=== PATIENT | male | born 1995 | race African-American/Black ===

== ENCOUNTER 2022-03-29 10:58 | Emergency (ER) | payer MEDICAID, SELFPAY ==
--- NOTE | ~2022-03-29 | US_ITS ---
EXAMINATION: US venous doppler UE RT DATE: 03/29/2022 12:05 INDICATION: Right arm pain TECHNIQUE: Rhodes scale images with and without compression and Doppler images of the right upper extre mity veins were obtained. COMPARISON: No prior studies for comparison. . FINDINGS: The right internal jugular vein, subclavian vein, axillary vein, brachial veins, basilic vein, cephal ic vein, radial vein, and ulnar vein are patent. IMPRESSION: 1. Patent right upper extremity veins. No evidence of deep venous thrombosis. Reviewed, dictated and finalized at location A.
[2022-03-29 11:16] VITALS: BP 144/84; PULSE 58; RESP 16; TEMP 36.2; O2SAT 98
--- NOTE | 2022-03-29 12:08 | ED.UPPEXIN ---
HPI - Extremity Injury (Upper) General Chief Complaint: Extremity Injury, Upper Stated Complaint: R arm pain Time Seen by Provider: 03/29/22 12:02 History of Present Illness HPI narrative: Pt presents with pain in right arm and hand for two to three days. Pt denies injury but has been doing a lot of lifting at work. 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 Pt denies SOB. Pt says the pain is worse with movement and the arm feels swollen. Pt denies fever. Related Data Allergies Allergy/AdvReac Type Severity Reaction Status Date / Time No Known Allergies Allergy Unverified 08/13/19 13:57 Review of Systems Review of Systems: All systems reviewed & are unremarkable except as noted in HPI and below Exam Const: General: healthy appearing Nutritional Appearance: well nourished Orientation/consciousness: patient oriented x3 Limitations: no limitations Eyes: Conjunctivae: conjunctivae normal EOM: EOMs intact bilaterally Neck: Neck: normal visual inspection, no lymphadenopathy and no meningeal signs Chest: Chest palpation & inspection: normal inspection of the chest Resp: Effort & Inspection: normal respiratory effort Auscultation: clear to auscultation bilaterally Cardio: Rate: regular rate Rhythm: regular rhythm GI: GI Palp: Yes Soft to palpation Auscultation: normal bowel sounds Skin: General skin exam: normal color Rashes: no rashes Wounds: no wounds Neuro: General: patient oriented x3 Cranial nerves: Yes Nystagmus not present Speech: normal speech Gait exam (Neuro): Normal gait present Extrem: Other: right arm appears swollen, diffuse tenderness but no specific bony tenderness. radial and ulnar pulses intact. No motor deficits. Psych: Mental Status: mental status grossly normal Affect: normal affect Attitude: cooperative Course Vital Signs Vital signs: Vital Signs Temperature 97.2 F L 03/29/22 11:16 Pulse Rate 58 L 03/29/22 11:16 Respiratory Rate 16 03/29/22 11:16 Blood Pressure 144/84 H 03/29/22 11:16 Pulse Oximetry 98 03/29/22 11:16 Oxygen Delivery Room Air 03/29/22 11:16 Temperature 97.2 F L 03/29/22 11:16 Pulse Rate 58 L 03/29/22 11:16 Respiratory Rate 16 03/29/22 11:16 Blood Pressure 144/84 H 03/29/22 11:16 Pulse Oximetry 98 03/29/22 11:16 Oxygen Delivery Room Air 03/29/22 11:16 Discharge Plan Discharge Clinical Impression: Muscle strain of right shoulder Patient Disposition: Home, Self-Care Condition: Stable Instructions: Antibiotic Form, Muscle Strain (DC) Prescriptions: New naproxen [Naprosyn] 500 mg tablet 500 mg PO BID Qty: 20 0RF cyclobenzaprine 10 mg tablet 10 mg PO TID Qty: 30 0RF Follow-up/Referrals: Ramiro Chance MD [Primary Care Provider] - Stand Alone Forms: Work/School Release IP
[2022-03-29] MEDS: MORPHINE SULFATE (*CRX) 4 MG/ML INJ IM (12:23)
== END 2022-03-29 13:05 | disposition home or self-care (01) ==
PROVIDERS: Emergency Provider Emergency Medicine; PCP Emergency Medicine
DX: S46.911A Strain of unspecified muscle, fascia and tendon at shoulder and upper arm level, right arm, initial encounter (principal); X50.0XXA Overexertion from strenuous movement or load, initial encounter
CPT/HCPCS: 93971; 96372; 99284; A4565; J2270

== ENCOUNTER 2024-06-07 10:45 | Emergency (ER) | payer MEDICAID, OTHER, SELFPAY ==
--- NOTE | ~2024-06-07 | CT_ITS ---
CT lumbar spine wo con Ordering provider: Kyle Franco MD History: 29 years Male with . Midline lumbar pain after lifting . Comparison: None. Technique: CT lumbar spine without contrast. Automated exposure control and iterative reconstruction technique were employed. The dose-length product was 639.61 mGy-cm. FINDINGS: VERTEBRAE: Lumbarization of S1. Pseudoarthrosis seen on the right side. Otherwise Normal height and a lignment. No subluxation or visible acute fracture. Hypodensity with sclerotic margin is seen in the left iliac bone which may be degenerative. Infection is less likely although not excluded. Clinical c orrelation and Follow-up advised. DISC SPACES: Well maintained. T12-L1: No stenosis. L1-L2: No stenosis. L2-L3: No stenosis. L3-L4: No stenosis. L4-L5: No stenosis. Mild diffuse disc bulge. L5-S1: No stenosis. PARASPINOUS SOFT TISSUES: Normal aorta. IMPRESSION: No acute osseous abnormality. Reviewed, dictated and finalized at location A.
[2024-06-07 10:52] VITALS: BP 130/82; PULSE 70; RESP 17; TEMP 36.4; O2SAT 98
--- NOTE | 2024-06-07 13:28 | ED.GENADULT ---
HPI - General Adult General Chief complaint: Back Pain/Injury Stated complaint: lower back pain Time Seen by Provider: 06/07/24 11:34 History of Present Illness HPI narrative: This is a 29-year-old male presenting ED with chief complaint of back pain. [place] and felt a pop in his back. Since then he has had some pain across his back. It is worse in the middle. He has not taken anything for pain control. He denies lower extremity weakness urinary retention bowel incontinence saddle anesthesia. Denies history of IV drug abuse cancer or trauma. Related Data Allergies Allergy/AdvReac Type Severity Reaction Status Date / Time shellfish derived Allergy Unknown Verified 06/07/24 12:07 [facility] Past Medical History Medical History (Updated 06/07/24 @ 13:42 by Kyle Franco MD) Sickle cell anemia Exam Narrative: APPEARANCE: No apparent distress. Head: atraumatic. EYES: EOMI, NOSE: Atraumatic NECK: Trachea midline RESPIRATORY: No increased rate of breathing CARDIOVASCULAR: RRR, ABDOMINAL: Non-distended MUSCULOSKELETAl: No obvious deformities NEURO: Alert. Cranial nerves 2-12 grossly intact. Sensation light touch, motor function cerebellar function intact for 4 extremities. Gait exam was normal. SKIN:: Warm, dry. Normal color PSYCHIATRIC: Normal affect Course Vital Signs Vital signs: Vital Signs Temperature 97.6 F 06/07/24 10:52 Pulse Rate 70 06/07/24 10:52 Respiratory Rate 17 06/07/24 10:52 Blood Pressure 130/82 06/07/24 10:52 Pulse Oximetry 98 06/07/24 10:52 Oxygen Delivery Room Air 06/07/24 10:52 Temperature 97.6 F 06/07/24 10:52 Pulse Rate 70 06/07/24 10:52 Respiratory Rate 17 06/07/24 10:52 Blood Pressure 130/82 06/07/24 10:52 Pulse Oximetry 98 06/07/24 10:52 Oxygen Delivery Room Air 06/07/24 10:52 Medical Decision Making [facility] Narrative Medical decision making narrative: -Course: 29-year-old male presenting with lower back pain after lifting an object. CT L-spine unremarkable. No red flags on history or physical. Patient will be discharged with supportive measures and return precautions. -DDX includes but is not limited to: Lumbar strain, disc rupture, -Co-morbidities complicating care: Sickle cell disease -Independent interpretation of studies: CT lumbar spine unremarkable -Shared decision making / Disposition: Discharged -RX Motrin Tylenol Robaxin Vital Signs Vital Signs: Vital Signs Temperature 97.6 F 06/07/24 10:52 Pulse Rate 70 06/07/24 10:52 Respiratory Rate 17 06/07/24 10:52 Blood Pressure 130/82 06/07/24 10:52 Pulse Oximetry 98 06/07/24 10:52 Oxygen Delivery Room Air 06/07/24 10:52 Temperature 97.6 F 06/07/24 10:52 Pulse Rate 70 06/07/24 10:52 Respiratory Rate 17 06/07/24 10:52 Blood Pressure 130/82 06/07/24 10:52 Pulse Oximetry 98 06/07/24 10:52 Oxygen Delivery Room Air 06/07/24 10:52 Discharge Plan Discharge Clinical Impression: Back strain Patient Disposition: Home, Self-Care Condition: Stable Instructions: Antibiotic Form, Acute Low Back Pain (ED) Additional Instructions: Using emergency department for back pain. Please take Motrin Tylenol Robaxin. Please follow-up your primary care for further management. Return if you develop weakness your legs, difficulty urinating or loss of bowel control. Prescriptions: New ibuprofen 800 mg tablet 800 mg PO TID PRN (Reason: pain) 7 Days Qty: 21 0RF acetaminophen 500 mg tablet 1,000 mg PO TID PRN (Reason: shabbir) 7 Days Qty: 42 0RF methocarbamol 750 mg tablet 1,500 mg PO TID Qty: 35 0RF No Action naproxen [Naprosyn] 500 mg tablet 500 mg PO BID Qty: 20 0RF cyclobenzaprine 10 mg tablet 10 mg PO TID Qty: 30 0RF Follow-up/Referrals: Ramiro Chance MD [Primary Care Provider] -
[2024-06-07 14:00] VITALS: BP 140/78; PULSE 80; RESP 16; O2SAT 98
== END 2024-06-07 14:00 | disposition home or self-care (01) ==
PROVIDERS: Emergency Provider Emergency Medicine; PCP Emergency Medicine
DX: S39.012A Strain of muscle, fascia and tendon of lower back, initial encounter (principal); D57.1 Sickle-cell disease without crisis; X50.0XXA Overexertion from strenuous movement or load, initial encounter
CPT/HCPCS: 72131; 99284

== ENCOUNTER 2024-09-12 12:38 | Outpatient (CLI) | payer OTHER, SELFPAY ==
[2024-09-12 13:46] LABS: SARS-CoV-2 RNA PCR Negative (Negative)
== END 2024-09-12 12:39 | disposition home or self-care (01) ==
LOC: ANHLAB 12:40
PROVIDERS: PCP Emergency Medicine; Visit Provider Emergency Medicine
DX: B34.9 Viral infection, unspecified (principal)
CPT/HCPCS: 87635

== ENCOUNTER 2025-05-01 09:48 | Inpatient (IN) | payer OTHER, SELFPAY ==
--- OUTSIDE RECORDS SUMMARY | 2025-02-12 06:12 | XMS_ITS | Continuity of Care Document ---
Author Organization [facility] Address [address] [facility] [place] [address] Phone Care Team Providers Care Manager Call Name Role Phone Ramiro Chance MD Unavailable Unavailable Allergies, Adverse Reactions, Alerts Substance Reaction Status Criticality No Known Allergies Active No Inform ation Medications Medication Instructions Dosage Effective Dates (start - stop) Status Comments triamcinolone acetonide 0.1 % topical cream apply by topical route 2 times every day a thin layer to the affected area(s) 0.00 - Active Procedures Procedure Date OFFICE/OUTPATIENT VISIT, EST OFFICE/OUTPATIENT VISIT, EST PREV VISIT, NEW, AGE 18-39 Advance Directives Directive Yes / No Effective Date File Name No Information Encounters Encounter Description Practice Location Reason(s) For Visit Diagnoses Date Provider Providers Copied on Encounter OFFICE/OUTPA TIENT VISIT, EST [facility], [address] [place], [place], [id number], [place] tel:[phone] [facility] MCV (chief complaint) eczema1 (chief complaint) weight gain1 (chief complaint) Other abnormality of red blood cellsSickle-cell disease without crisisEczemaAbnorma l weight gain 5 Robson Rubio. [address] [facility] [place], [place], [id number] , [place]. tel:[phone] OFFICE/OUTPA TIENT VISIT, EST [facility], [address] [place], [id number], [place] tel:[phone] [facility] sick (chief complaint) ankle pain1 (chief complaint) back pain1 (chief complaint) sickle1 (chief complaint) Viral infectionPain in left ankleMuscle spasm of backSickle-cell disease without crisis 5 Robson Rubio. [address], [place], [place], [address] , [place]. tel:[phone] PREV VISIT, NEW, AGE 18-39 [facility], [address], [place], [place], [id number], [place] tel:[phone] [facility] back pain1 (chief complaint) Encounter for general adult medical examination without abnormal findings 4 Chance Ramiro. [address], [place], [place], [id number] , [place]. [phone] Family History Family Member Type Diagnosis Age At Onset Father Problem sickle cell disease Brother Problem Alive and well Mother Problem sickle cell carrier Payers Payer name Insurance type Covered alliance party [facility] [id number] Social History Type Description Quantity Date Captured Comments Alcohol Use Details No Caffeine Use Details Unknown Tobacco Use Status Current non-smoker Smoking Status Never smoker Sex Male Vital Signs Date / Time: Height Weight BMI Pulse Rate Blood Pressure Temperature Respiratory Rate Body Surface Area Head Circumference BMI percentile Pulse Ox Inhaled Ox 11:12 AM 72.00 in 238.00 lbs 32.2 8 kg/m eter (2) 61 /min 120/70 mm[Hg] 98.4 F 16 /min Chief Complaint And Reason For Visit From encounter dated '02/12/2025 11:12'. MCV (chief complaint). Description: pt has low MCV on lab. Pt does have sickle cell disease withoutrecurrent crisis. He is not anemia and his iron is ok eczema1 (chief complaint). Description: Pt has spotty eczema with dry and itching skin on hand, neck and scalp area . weight gain1 (chief complaint). Description: Pt gained some weight recently .He has not been physically active Plan Of Treatment Date Type Action Status Referral Ordered: Hematology (related to Sickle-cell disease without crisis) ordered Referral Ordered: Referrals: Hematology. Evaluate and treat ordered Referral Ordered: Physical Therapy (related to Muscle spasm of back) ordered Referral Referred To: Physical Therapy Ordered: Referrals: Physical Therapy. Evaluate and treat ordered Appointment [facility] BOOK[facility] History Of Present Illness Encounter Date Complaint History Of Prese nt Illness MCV pt has low MCV o n lab. Pt does have sickle cell disease without recurrent crisis. He is not anemia and his iron is ok eczema1 Pt has spotty ec zema with dry and itching skin on hand, neck and scalp area . weight gain1 Pt gained some w eight recently .He has not been physically active sick Pt c/o acute ons et fever as high as 100.3, mild cough with green mucous, sinus congestion, sore throat, x 4 days. Pt denies any sob Pt denies any GI issue. Pt wants COVID test. Pt denies any dysphagia or neck pain Pt denies any wheezing. ankle pain1 Pt sprained left ankle 3 days ago while pulling something. Pt denies any yuliya injury Pt notices some pain left ankle Pt notices some ankle swelling as well Pt denies any paresthesia. Pt went to [facility] 2 days ago and he was given ibuprofen and he had negative left ankle x ray and was diagnosed with strain of left ankle back pain1 Pt c/o intermitt ent low back pain Pt denies any sciatica or any loss of bowel or bladder control or saddle area paresthesia. sickle1 Pt has sickle ce ll disease without chest pain or any recurrent crisis. back pain1 Pt needs annual physical. Pt picked up something heavy around 06/06/2024 and he noticed a pop around lumbar area with back pain Pt denies any sciatica Pt denies any neuropathy symptoms Pt went to [facility] and had negative lumbar CT pt states that he continues to have some low back pain. Pt denies any loss of bowel or bladder control. Pt is concerned about low back pain Instructions Date Instruction Additional Infor mation No Information Assessments Type Assessment Date assessment Other abnormality of red blood c ells assessment Sickle-cell disease without sally is assessment Eczema assessment Abnormal weight gain Mental Status Date Cognitive Assessment Orientation - [place] ed to time, place, person, situation.
--- OUTSIDE RECORDS SUMMARY | 2025-02-12 06:12 | XMS_ITS | Continuity of Care Document ---
Author Organization [facility] Address [address] [facility] [place] [address] Phone Care Team Providers Care Minibus Driver Name Role Phone Ramiro Chnace MD Unavailable Unavailable Allergies, Adverse Reactions, Alerts [...] Copied on Encounter OFFICE/OUTPA TIENT VISIT, EST [facility], [address] [place], [place], [id number], [place] tel:[phone] [facility] MCV (chief complaint) eczema1 (chief complaint) weight gain1 (chief complaint) Other abnormality of red blood cellsSickle-cell disease without crisisEczemaAbnorma l weight gain 5 Robson Rubio. [address] [facility] [place], [id number] , [place]. tel:[phone] OFFICE/OUTPA TIENT VISIT, EST [facility], [address] [place], [id number], [place] tel:[phone] [facility] sick (chief complaint) ankle pain1 (chief complaint) back pain1 (chief complaint) sickle1 (chief complaint) Viral infectionPain in left ankleMuscle spasm of backSickle-cell disease without crisis 5 Robson Rubio. [address], [place], [place], [address] , [place]. [phone] PREV VISIT, NEW, AGE 18-39 [facility], [address], [place], [place], [address], [place] tel:[phone] [facility] back pain1 (chief complaint) Encounter for general adult medical examination without abnormal findings 4 Chance Ramiro. [address], [place], [place], [address] , [place]. tel:[phone] Family History Family Member Type Diagnosis Age At Onset Father Problem sickle cell disease Brother Problem Alive and well Mother Problem sickle cell carrier Payers Payer name Insurance type [facility]overed [facility] [id number] Social History Type Description Quantity Date Captured [...] Mental Status Date Cognitive Assessment Orientation - [place] ed to time, place, person, situation.
[2025-05-01] VITALS (47 sets, daily range): BP systolic 113–145; BP diastolic 69–97; PULSE 59–86; RESP 10–23; TEMP 36.4; O2SAT 97–100; BMI 33.8
--- NOTE | ~2025-05-01 | XR_ITS ---
EXAMINATION: XR chest 2V 05/01/2025 11:25 INDICATION: Sickle cell crisis for one week PROCEDURE: 2 view chest COMPARISON: 07/12/2017 FINDINGS: The lungs are clear. The cardiomediastinal silhouette is within normal limits. There are no pleural effusions. There is no pneumothorax suspected. IMPRESSION: 1: NO ACUTE CARDIOPULMONARY DISEASE. Reviewed, dictated and finalized at location O.
--- NOTE | ~2025-05-01 | CT_ITS ---
EXAMINATION: CT pelvis wo con DATE: 05/01/2025 16:31 INDICATION: Bilateral hip and low back pain TECHNIQUE: High resolution computed tomography (CT) of the pelvis was performed without intravenous contrast. Additional sagittal and coronal reconstructions were performed. Automated exposure control and iterative reconstruction technique were employed. The dose-length product was 496.54 mGy-cm. COMPARISON: Lumbar spine CT dated 06/07/2024 FINDINGS: Bone alignment is normal. Transitional L5 segment, sacralized on the right. No fracture. Chronic lytic lesion with serpiginous sclerotic margins at the base of the left posterior iliac spine consistent with a chronic bone infarct. Stable appearance of an additional likely benign small ill-defined sclerotic focus in nearly identical position at the contralateral base of the right posterior leg spine potentially with similar etiology. No other suspicious lytic or blastic bone lesions. Specifically no evident lesions at the femoral heads to suggest osteonecrosis. Bilateral hip joint spaces appear relatively preserved however there are mild hypertrophic change along the rims of the bilateral acetabula consistent with at least minimal osteoarthritis. No hip joint effusions or other abnormal fluid collections. Suture line along the tip the cecum consistent with prior appendectomy. The bladder, prostate, seminal vesicles and visualized portions of bowels are unremarkable. No pathologically enlarged pelvic or inguinal lymphadenopathy. IMPRESSION: 1. Unchanged small indolent appearing lytic lesion with serpiginous cardiac margins at the base of the left posterior neck spine suggestive of a chronic bone infarct particularly given history of sickle cell disease. No acute osseous abnormality. Reviewed, dictated and finalized at location A. IMPRESSION: 1. Unchanged small indolent appearing lytic lesion with serpiginous cardiac mar gins at the base of the left posterior neck spine suggestive of a chronic bone infarct particularly given history of sickle cell disease. No acute osseous abn ormality.
--- OUTSIDE RECORDS SUMMARY | 2025-05-01 10:09 | XMS_ITS | Clinical Summary ---
Author Organization [facility] Address [address] [place] [address] Care Team Providers Care Compliance Vice President Name Role Phone Ramiro Chance MD Primary Care Provider [phone] Allergies No known active allergies Medications No known medications Social History Tobacco Use Types Packs/Day Years Used Date Smoking Tobacco: Never Smokeless Tobacco: Never Tobacco Cessation:Counseling Given: Not Answered Alcohol Use Standard Drinks/Week Comments Never 0 (1 standard drink = 0.6 oz pur e alcohol) Sex and Gender Information Value Date Recorded Sex Assigned at Not on file Legal Sex Male 7:43 PM CDT Gender Identity Not on file Sexual Orientation Not on file Last Filed Vital Signs Vital Sign Reading Time Taken Comments Blood Pressure 138/88 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 Pulse 84 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 Temperature 36.9 C (98.5 F) 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 Respiratory Rate 16 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 Oxygen Saturation 96% 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 Inhaled Oxygen Concentration - - Weight 103.9 kg (229 lb) 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 Height 182.9 cm (6') 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 Body Mass Index 31.06 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 Plan of Treatment Health Maintenance Due Date Last Done Comments Annual Physical 2000 HPV Vaccines (2 - Male 3-dose series) 11/13/2013 10/16/2013 Hepatitis C 2015 DTaP, Tdap and Td Vaccines (2 - Td or Tdap) 09/16/2019 09/16/2009 COVID-19 Vaccine ( season) 2024 Hepatitis B Vaccines Completed 1997, 1997, 1997 Pneumococcal Vaccine: Pediatrics (0 to 5 Years) and At-Risk Patients (6 to 49 Years) Aged Out 11/05/2015, 06/05/2014, 09/01/2001, Additional history exists No longer eligible based on patient's age to complete this topic Meningococcal Vaccine Aged Out 06/25/2016, 010 No longer eligible based on patient's age to complete this topic Meningococcal B Vaccine Aged Out No l onger eligible based on patient's age to complete this topic RSV Immunizations Under 20 Months Aged Out No longer eligible based on patient's age to complete this topic Insurance [employer] Care Teams Compliance Vice President Relationship Specialty Start Date End Date Ramiro Chance MD [address] [place] [id number] PCP - General FAMILY PRACTICE 07/08/24
--- OUTSIDE RECORDS SUMMARY | 2025-05-01 10:09 | XMS_ITS | Clinical Summary ---
Author Organization [facility] Address [address] [place] [address] Phone Care Team Providers Care Keno Manager Name Role Phone Ruben Pantoja APRN, MICROSCOPIST Primary Care Pr ovider Bhanu Rubio MD Unavailable Tramaine Estrada DO Unavailable [phone] Allergies No known active allergies Medications triamcinolone (KENALOG) 0.1 % Cream Apply 2 times daily. 02/12/2025 Active folic acid (FOLVITE) 1 MG Tablet Take 1 Tablet by mouth daily. 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 Telephone [facility] [address] [phone] Hawa Paula, HELENA, MICROSCOPIST 04/09/2025 Travel 02/26/2025 2:15 PM CDT Lab [facility] [address] [phone] Lab, Cc [place] Hemoglobinopathy (HCC) 02/26/2025 2:00 PM CDT Office Visit [facility] [address] [phone] Tramaine Estrada, DO Hemoglobinopathy (HCC) (Primary Dx) 02/26/2025 Travel from Last 3 Months Family History Medical History Relation Name Comments Hypertension Father Sickle Cell Anemia Father Sickle Cell Trait Half-Brother 1 Sickle Cell Trait Half-Brother 2 Sickle Cell Trait Half-Brother 3 Sickle Cell Trait Half-Brother 4 Sickle Cell Trait Half-Sister 1 Sickle Cell Trait Half-Sister 2 Hypertension Mother Sickle Cell Trait Mother Other-comment Sister 1 accident Sickle Cell Trait Sister 2 Sickle Cell Trait Sister 3 Relation Name Status Comments Father Alive Half-Brother 1 Alive Half-Brother 2 Alive Half-Brother 3 Alive Half-Brother 4 Alive Half-Sister 1 Alive Half-Sister 2 Alive Mother Alive Sister 1 Sister 2 Alive Sister 3 Alive Social History Tobacco Use Types Packs/Day Years Used Date Smoking Tobacco: Former Cigarettes Smokeless Tobacco: Never Tobacco Cessation:Counseling Given: Not Answered Alcohol Use Standard Drinks/Week Comments Not Currently 0 (1 standard drink = 0.6 oz pur e alcohol) [facility] Utilities Answer Date Recorded In the past 12 months has [employer], gas, oil, or water [employer] threatened to shut off services in your home? No 09/09/2023 Social Connection and Isolation Panel Answer Date Recorded In a typical week, how many times do you talk on the phone with family, friends, or neighbors? Three times a week 09/09/19 How often do you get togethe r with friends or relatives? Twice a week 09/09/2023 How often do you attend chur or jain services? Never 09/09/2023 Do you belong to any clubs o r organizations such as sikh groups, unions, fraternal or athletic groups, or school groups? No 09/09/2023 How often do you attend meet ings of the clubs or organizations you belong to? Never 09/09/2023 Are you , , di vorced, , never , or living with a partner? Living with partner 09/09/2023 AUDIT-C Answer Date Recorded Q1: How often do you have a drink containing alcohol? Monthly or less 09/09/2023 Q2: How many drinks containi ng alcohol do you have on a typical day when you are drinking? Patient does not drink Q3: How often do you have si x or more drinks on one occasion? Less than monthly 09/09/2023 Overall Financial Resource Strain (CARDIA) Answe r Date Recorded How hard is it for you to pa y for the very basics like food, housing, medical care, and heating? Not very hard 09/09/2023 [facility] - Occupational Stress Questionnaire Answer Date Recorded Do you feel stress - tense, restless, nervous, or anxious, or unable to sleep at night because your mind is troubled all the time - these days? Only a little 09/09/2023 Exercise Vital Sign Answer Date Recorde d On average, how many days pe r week do you engage in moderate to strenuous exercise (like a brisk walk)? 6 days 09/09/2023 On average, how many minutes do you engage in exercise at this level? 20 min 09/09/2023 Hunger Vital Sign Answer Date Recorded Within the past 12 months, y ou worried that your food would run out before you got the money to buy more. Never true 09/09/19 24 Within the past 12 months, t he food you bought just didn't last and you didn't have money to get more. Never true 09/09/2023 PRAPARE - Transportation Answer Date Re corded In the past 12 months, has l ack of transportation kept you from medical appointments or from getting medications? No 01/2024 In the past 12 months, has l ack of transportation kept you from meetings, work, or from getting things needed for daily living? No 09/09/2023 Housing Stability Vital Sign Answer Boy e Recorded In the last 12 months, was t here a time when you were not able to pay the mortgage or rent on time? No 09/09/2023 In the last 12 months, how many places have you lived? 2 09/09/2023 In the last 12 months, was t here a time when you did not have a steady place to sleep or slept in a custodial (including now)? No 09/09/2023 Sexually Active Control Partners Comments Yes None Female Sex and Gender Information Value Date Recorded Sex Assigned at Not on file Legal Sex Male 1:04 PM HOUSEFELLOW Gender Identity Not on file Sexual Orientation Not on file Last Filed Vital Signs Vital Sign Reading Time Taken Comments Blood Pressure 168/90 04/09/2025 1:28 PM CDT Pulse 81 04/09/2025 1:28 PM CDT Temperature 36.7 C (98.1 F) 04/09/2025 1:28 PM CDT Respiratory Rate 18 04/09/2025 1:28 PM CDT Oxygen Saturation 98% 04/09/2025 1:28 PM CDT Inhaled Oxygen Concentration - - Weight 105.7 kg (233 lb) 04/09/2025 1:28 PM CDT Height 181.6 cm (5' 11.5) 04/09/2025 1:28 PM CD T Body Mass Index 32.04 04/09/2025 1:28 PM CDT Plan of Treatment Upcoming Encounters Date Type Department Care Team (Late st Contact Info) Description 07/09/2025 2:00 PM HOUSEFELLOW Lab [facility] [address] [phone] Lab, Cc [facility] 07/09/2025 2:15 PM HOUSEFELLOW Office Visit [facility] [address] [phone] Tramaine Estrada, [address] [place] [phone] Health Maintenance Due Date Last Done Comments Hepatitis C Virus (HCV) Screening 1997 Human Papillomavirus (HPV) Immunization (2 - Male 3-dose series) 11/13/2013 10/16/2013 Pneumococcal Immunization Combined (3 of 3 - PCV20 or PCV21) 06/05/2019 11/05/2015, 06/05/2014, 09/01/2001, Additional history exists SARS-COV-2 Immunization ( season) 2024 Influenza Immunization (#1) 2025 10/09/2015, 06/05/2014, 10/16/2013, Additional history exists Respiratory Syncytial Virus (RSV) Immunization (Adult) (1 - 1-dose 75+ series) 2072 Hepatitis B Immunization Completed 998, 1997, 1997 DTaP/Tdap/Td Immunization Discontinued 09/16/2009 TdaP Immunization Completed 09/16/2009 Meningococcal Immunization (ACWY) Aged Out 06/25/2016, 09/16/2009 No longer eligibl e based on patient's age to complete this topic Rotavirus Immunization Aged Out No lo nger eligible based on patient's age to complete this topic Procedures Procedure Name Priority Date/Time Associated Diagnosis Comments HAPTOGLOBIN OH Routine 02/26/2025 2:17 PM CDT COMPLETE BLOOD COUNT (CBC) WITH DIFF Routine 02/26/2025 2:17 PM CDT Hemoglobinopathy (HCC) CMP (COMPREHENSIVE METABOLIC PANEL) Routine 02/26/2025 2:17 PM CDT Hemoglobinopathy (HCC) RETICULOCYTE COUNT (RETIC) Routine 02/26/2025 2:17 PM CDT Hemoglobinopathy (HCC) LACTATE DEHYDROGENASE (LD) Routine 02/26/2025 2:17 PM CDT Hemoglobinopathy (HCC) HEMOGLOBINOPATHY PROFILE [place] [id number] Routine 02/26/2025 2:17 PM CDT Hemoglobinopathy (HCC) from Last 3 Months Results * (ABNORMAL) HAPTOGLOBIN OH (02/26/2025 2:17 PM CDT) Haptoglobin <10(L) 17 - 317 MG/DL [facility] 02/26/2025 2:17 PM CDT Narrative [facility] - 02/27/2025 9:07 AM CDT TESTING PERFORMED AT: [CB] [facility], [address] [place] [address], [place], [address], PHONE: [phone], CHARRER: MARTHA MATSON, PHD Tramaine Estrada DO LAB SEND OUTS Final Result [facility] [place] [address], * (ABNORMAL) HEMOGLOBINOPATHY PROFILE [place] [id number] (02/26/2025 2:17 PM CDT) HEMOGLOBIN F REFLEXED 0.0 - 2.0 % [facility] HEMOGLOBIN A REFLEXED 96.4 - 98.8 % [facility] HEMOGLOBIN A2 REFLEXED 1.8 - 3.2 % [facility] HEMOGLOBIN S REFLEXED 0.0 % [facility] HEMOGLOBIN PATTERN COMMENT C [facility] Comment: CAPILLARY ELECTROPHORESIS (CE) PERFORMED. REFLEX TO HGB SOLUBILITY AND HIGH-PRESSURE LIQUID CHROMATOGRAPHY (HPLC) METHOD FOR CONFIRMATION. HEMOGLOBIN S HGB SOLUBILITY POSITIVE(A) NEGATIVE [facility] HEMOGLOBIN F 0.7 0.0 - 2.0 % [facility] HEMOGLOBIN A 0.0(L) 96.4 - 98.8 % [facility] HEMOGLOBIN A2 3.5(H) 1.8 - 3.2 % [facility] HEMOGLOBIN S 49.3(H) 0.0 % [facility] HEMOGLOBIN C 46.5(H) 0.0 % [facility] HEMOGLOBIN E 0.0 0.0 % [facility] FINAL INTERPRETATION COMMENT [facility] Comment: HEMOGLOBIN PATTERN AND CONCENTRATIONS ARE CONSISTENT WITH S-C DISEASE. SUGGEST CLINICAL AND HEMATOLOGIC CORRELATION. S-C DISEASE INTERPRETATION RANGES HGB F 0.0 - 20.0% HGB S 40.0 - 60.0% HGB C 35.0 - 50.0% HGB A2 2.8 - 6.0% 02/26/2025 2:17 PM CDT Narrative [facility] - 03/04/2025 1:07 PM CDT TESTING PERFORMED AT: [] [facility], [address] [place] [address], [place], [address], PHONE: [phone], CHARRER: MARTHA MATSON, PHD Release to patient->Immediate us Tramaine Estrada DO LAB SEND OUTS Final Result Performing Organization Address City/[facility]/ZIP Co de Phone Number [facility] [place] [address], [place] [phone] * (ABNORMAL) RETICULOCYTE COUNT (RETIC) (02/26/2025 2:17 PM CDT) Reticulocyte count 3.43(H) 0.51 - 1.81 % [facility] RET-He 26.50(L) 28.20 - 36.60 pg [facility] Comment: RET-He is a direct assessment of incorporation of iron into erythrocyte hemoglobin. It provides an indirect measure of the iron available for new erythropoiesis over past 2-4 days. Blood 02/26/2025 2:17 PM CDT [facility] - 02/26/2025 2:34 PM CDT Release to patient->Immediate us Tramaine Estrada DO HEMATOLOGY ORDERABLES Final Re sult Performing Organization Address City/[facility]/ZIP Co de Phone Number [facility] [place] [address], [place] [phone] * LACTATE DEHYDROGENASE (LD) (02/26/2025 2:17 PM CDT) LDH 158 140 - 271 U/L [facility] Blood 02/26/2025 2:17 PM CDT [facility] - 02/26/2025 3:11 PM CDT Release to patient->Immediate us Tramaine Estrada DO CHEMISTRY ORDERABLES Final Res ult [facility] [place] [address], * (ABNORMAL) CMP (COMPREHENSIVE METABOLIC PANEL) (02/26/2025 2:17 PM CDT) Glucose 97 70 - 105 mg/dL [facility] Blood Urea Nitrogen 11 7 - 25 mg/dL [facility] Creatinine 1.2 0.7 - 1.3 mg/dL [facility] Sodium 139 136 - 145 mEq/L [facility] Potassium 4.5 3.5 - 5.1 mEq/L [facility] Chloride 103 98 - 107 mEq/L [facility] Bicarbonate 29 21 - 31 mEq/L [facility] Total Bilirubin 1.3(H) 0.3 - 1.0 mg/dL [facility] Alk. Phosphatase 101 34 - 104 U/L [facility] Aspartate Aminotransferase 13 13 - 39 U/L [facility] Alanine Aminotransferase 12 7 - 52 U/L [facility] Total Protein 8.0 6.4 - 8.9 g/dL [facility] Albumin 4.9 3.5 - 5.7 g/dL [facility] Calcium 10.1 8.6 - 10.3 mg/dL [facility] Anion Gap 11.5 7.0 - 15.0 mEq/L [facility] Globulin 3.1 2.0 - 3.5 g/dL [facility] EGFR 84 >60 ml/min/1. 73m2 [facility] Comment: This eGFR is calculated using 2020 CKD-EPI Creatinine equation without race modifier based on the NKF-ASN task force recommendations Equation: vOJL=055*min(SCr/k,1)a*max(SCr/k,1)-1.200*0.9938Age*1.012 (if female), where SCr is serum creatinine, k is 0.7 for females and 0.9 for males, and a is -0.241 for females and -0.302 for males Blood 02/26/2025 2:17 PM CDT Narrative [facility] - 02/26/2025 3:11 PM CDT Release to patient->Immediate IS THE PATIENT REQUIRED TO BE FASTING FOR 8 HOURS?->No us Tramaine Estrada DO CHEMISTRY ORDERABLES Final Res ult [facility] [address] [place] [address], [place] [phone] from Last 3 Months Insurance MED[place]ID [place] Advance Directives * Full Code (Latest Code Status on File) Date Activated Date Inactivated Comments 09/09/2023 1:45 AM 09/13/2023 3:24 PM CPR-Full Treat ment: FULL ARREST: Attempt Resuscitation/CPR wit intubation and mechanical ventilation. PRE-ARREST: Use entire range of life support measures to stabilize the patient. Care Teams Keno Manager Relationship Specialty Start Date End Date Ruben Pantoja APRN, MICROSCOPIST #2 [facility] [address] [place] [address] PCP - General Advanced Practice Nurse 09/20/23 Bhanu Rubio MD #2 [facility] [address] [place] [address] Consulting Physician Colon and Rectal Surgery 09/21/23 Tramaine Estrada DO [address] [place] [phone] Consulting Physician Oncology 02/13/25
--- OUTSIDE RECORDS SUMMARY | 2025-05-01 10:09 | XMS_ITS | Clinical Summary ---
Author Organization [facility] Address [address] [place] [address] Care Team Providers Care Retail Merchandising Coordinator Name Role Phone Ramiro Chance MD Primary Care Provider [phone] Allergies No known active allergies Medications acetaminophen- codeine (TYLENOL with CODEINE #4) 300-60 mg per tablet Take 1 tablet by mouth every 4 (four) hours as needed for pain Take as directed with food. Collaborating physician Yovani Goetz MD 12 tablet 12/02/19 Active naproxen (NAPROSYN) 500 mg tablet Take 1 tablet (500 mg total) by mouth 2 (two) times a day with meals P.r.n. pain and/or fever. Collaborating physician Yovani Goetz MD 20 tablet 05/10/20 23 Active promethazine-D M (PROMETHAZINE- DM) 1.25-3 mg/mL syrupIndicatio ns:Acute bronchitis, unspecified organism Take 5 mL by mouth 4 (four) times a day as needed for cough Collaborating physician Yovani Goetz MD 118 mL 05/10/20 23 Active amoxicillin-cl avulanate (AUGMENTIN) 875-125 mg per tabletIndicati ons:Acute maxillary sinusitis, recurrence not specified Take 1 tablet by mouth every 12 (twelve) hours for 10 days Collaborating physician Yovani Goetz MD 20 tablet 04/22/20 25 2024 Active phenylephrine (ARNULFO-SYNEPHRIN E) 0.25 % nasal sprayIndicatio ns:Acute maxillary sinusitis, recurrence not specified Administer 2 sprays into each nostril every 4 (four) hours as needed for congestion Collaborating physician Yovani Goetz MD 15 mL 04/22/20 Active amoxicillin-cl avulanate (AUGMENTIN) 875-125 mg per tabletIndicati ons:Acute left otitis media Take 1 tablet by mouth every 12 (twelve) hours Collaborating physician Yovani Goetz MD 14 tablet 05/10/20 23 2024 Discontinued predniSONE (DELTASONE) 20 mg tabletIndicati ons:Acute maxillary sinusitis, recurrence not specified Take 1 tablet (20 mg) by mouth 2 (two) times a day for 5 days Collaborating physician Yovani Goetz MD 10 tablet 04/22/20 25 2024 Active Problems Problem Noted Date Diagnosed Date Acute maxillary sinusitis 04/22/2025 Acute left otitis media 05/09/2023 Strep pharyngitis 12/01/2022 Encounters Date Type Department Care Team Description 04/22/2025 3:22 PM CDT - 04/22/2025 4:53 PM CDT Emergency [facility] Emergency Department [address] [place] [address] Acute maxillary sinusitis, recurrence not specified (Primary Dx); Acute left otitis media Discharge Disposition: Discharge to home or self care from Last 3 Months Medical History Medical History Date Comments Sickle cell anemia (HCC) Social History Tobacco Use Types Packs/Day Years Used Date Smoking Tobacco: Never Tobacco Cessation:Counseling Given: Not Answered Alcohol Use Standard Drinks/Week Comments Never 0 (1 standard drink = 0.6 oz pur e alcohol) Personal Safety Answer Date Recorded Have you ever been in or are you currently in a harmful physical or emotional relationship or is someone making you feel afraid or unsafe? 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 Gender Identity Not on file Sexual Orientation Not on file Obstetrics History Last Filed Vital Signs Vital Sign Reading Time Taken Comments Blood Pressure 136/78 04/22/2025 4:51 PM CDT Pulse 75 04/22/2025 4:51 PM CDT Temperature 36.9 C (98.4 F) 04/22/2025 2:50 PM CDT Respiratory Rate 16 04/22/2025 4:51 PM CDT Oxygen Saturation 97% 04/22/2025 4:51 PM CDT Inhaled Oxygen Concentration - - Weight 105.7 kg (233 lb) 04/22/2025 2:50 PM CDT Height 180.3 cm (5' 11) 04/22/2025 2:50 PM CDT Body Mass Index 32.5 04/22/2025 2:50 PM CDT Plan of Treatment Health Maintenance Due Date Last Done Comments Depression Screening 1997 Hepatitis C Screening 1997 Meningococcal B Vaccine (1 o f 4 - Increased Risk) 2007 HPV Vaccines (2 - Male 3-dos e series) 11/13/2013 10/16/2013 Regular Well Visit/Exam 18-64 2015 DTaP/Tdap/Td Vaccine (2 - Td or Tdap) 09/16/2019 09/16/2009 Pneumococcal vaccine <65 (3 of 3 - PCV20 or PCV21) 11/04/2020 11/05/2015, 06/05/2014, 09/01/2001, Additional history exists Influenza Vaccine (#1) 2025 6, 06/05/2014, 10/16/2013, Additional history exists Hepatitis B Screening Completed 1997 , 1997, 1997 Varicella Vaccines Completed 04/07/2011, 03/12/1998 Procedures Procedure Name Priority Date/Time Associated Diagnosis Comments INFLUENZA A/B, RSV, AND COVID-19 PCR STAT 04/22/2025 3:15 PM CDT from Last 3 Months Results * Influenza A/B, RSV, and COVID-19 PCR Nasopharyngeal (04/22/2025 3:15 PM CDT) COVID-19 RNA Negative Negative Influenza A RNA Negative Negative [facility] ([place]) Influenza B RNA Negative Negative [facility] ([place]) RSV RNA Negative Negative [facility] ([place]) Comment: Interpretive data: Testing performed by [facility]. This test is performed using the [employer] Xpert Xpress CoV-2/Flu/RSV plus assay. This is a multiplex, real- time reverse transcriptase PCR assay intended for the qualitative detection of nucleic acid from SARS-CoV-2, influenza A, influenza B, and respiratory syncytial virus. This assay has been cleared by the [place] Food and Drug administration. The performance characteristics have been verified by the [facility]. Results must be considered in the clinical context, and a negative result does not rule out infection. Interpretive Data last revised 2023 Nasopharyngeal 04/22/2025 3: 15 PM CDT 04/22/2025 3:18 PM CDT Narrative [facility] ([place]) - 04/22/2025 3:56 PM CDT Is the Patient experiencing symptoms consistent with COVID?->Yes us Jarred Reyes MD LAB MICROBIOLOGY - GENERAL ORD ERABLES Final Result [facility] ([place]) 1 [facility] [place] [address] from Last 3 Months Insurance [facility] Care Teams Retail Merchandising Coordinator Relationship Specialty Start Date End Date Ramiro Chance MD [address] [place] [address] PCP - General Family Medicine 04/22/25
[2025-05-01 10:20] LABS: Hematocrit 35.9 % (42.0-52.0); Hemoglobin 12.3 g/dL (14.0-18.0); Immature Granulocyte Percent A 1.5 % (0-0.5); Immature Reticulocyte Fraction 46.2 % (3.0-15.9); Lymphocytes Absolute Auto 6.52 K/mm3 (0.9-3.2); Mean Corpuscular HGB Conc 34.3 g/dl (32-36); Mean Corpuscular Hemoglobin 24.0 pg (26-34); Mean Corpuscular Volume 70.0 fl (80-100); Nucleated Red Blood Cells Absolute Auto 0.120 K/mm3 (0.0-0.012); Nucleated Red Blood Cells Perc 0.6 % (0.0-0.2); Platelet Count Result 284 k/mm3 (150-375); Red Blood Count 5.13 M/mm3 (4.6-6.20); Reticulocyte Hemoglobin Conten 28.5 pg (28.2-36.6); Reticulocytes Absolute 0.27 10^6/uL (0.02-0.10); White Blood Count 20.1 K/mm3 (4.5-10.0)
[2025-05-01 10:39] LABS: Alanine Aminotransferase 22 U/L (6-50); Albumin Level 4.4 g/dL (3.5-5.1); Alkaline Phosphatase 95 U/L (38-126); Anion Gap 9 mmol/L (4-12); Aspartate Amino Transferase 32 U/L (17-59); Bilirubin,Total 1.3 mg/dL (0.2-1.3); Blood Urea Nitrogen 15 mg/dL (9-20); Calcium 9.3 mg/dL (8.4-10.2); Carbon Dioxide 25 mmol/L (22-30); Chloride 104 mmol/L (98-107); Estimated CRCL calculation 116 ml/min; Estimated Glomerular Filt Rate > 60; Glucose 93 mg/dL (65-110); Potassium 3.9 mmol/L (3.4-5.0); Sodium 138 mmol/L (137-145); Total Protein 7.8 g/dL (6.3-8.2)
[2025-05-01 10:46] LABS: Anisocytosis 1+; Polychromasia 1+; Target Cells 2+
[2025-05-01 10:47] LABS: Basophilic Stippling 1+; Schistocytes None Seen
--- OUTSIDE RECORDS SUMMARY | 2025-05-01 10:51 | XMS_ITS | Clinical Summary ---
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 This test is performed using the [employer] Xpert Xpress CoV-2/Flu/RSV plus assay. This is a multiplex, real- time reverse transcriptase PCR assay intended for the qualitative detection of nucleic acid from SARS-CoV-2, influenza A, influenza B, and respiratory syncytial virus. This assay has been cleared by the [place] Food and Drug administration. The performance characteristics have been verified by the [facility]. Results must be considered [...] GENERAL ORD ERABLES Final Result [facility] ([place]) 1 [facility] [place] [address] from Last 3 Months Insurance [facility] Care Teams Enamel Cracker Relationship Specialty Start Date End Date Ramiro Chance MD [address] [place] [address] PCP - General Family Medicine 04/22/25
--- NOTE | 2025-05-01 11:04 | ED.GENADULT ---
HPI - General Adult General Chief complaint: Recheck/Abnormal Lab/Rx Stated complaint: sickle cell Time Seen by Provider: 05/01/25 10:02 Source: patient Mode of arrival: ambulatory Limitations: no limitations History of Present Illness HPI narrative: A 30-year-old male that presents to the emergency department for sickle cell crisis. Reports he has been having pain ongoing over the last week. Has been evaluated for this at another hospital as well. Reports hip pain, low back pain, lower extremity pain, rib pain. He tried taking his home tramadol with little relief. 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 Denies fever, cough, abdominal pain, vomiting, diarrhea, dysuria. Related Data Allergies Allergy/AdvReac Type Severity Reaction Status Date / Time shellfish derived Allergy Unknown Verified 05/01/25 09:59 Review of Systems Review of Systems: All systems reviewed & are unremarkable except as noted in HPI and below PMFSH Past Medical History Medical History (Updated 05/01/25 @ 17:57 by Italia Alicea PA-C) Sickle cell anemia Exam Narrative: GENERAL: Uncomfortable, well-nourished, and in no acute distress. HEAD: Normocephalic, atraumatic. EYES: PERRLA and EOMI. ENT: Nares clear, no rhinorrhea or epistaxis. Mucous membranes moist. Oropharynx without tonsillar hypertrophy exudate or other lesions. Bilateral TMs pearly varghese non-bulging NECK: Supple. No adenopathy or masses. CHEST: Clear to auscultation. No respiratory distress. No wheezes rales or rhonchi HEART: Regular rate and rhythm. No murmur heard. Normal peripheral pulses. ABDOMEN: Soft, nontender, nondistended, normal active bowel sounds. EXTREMITIES: Normal range of motion. No edema. SKIN: Warm, dry, no rash. NEURO: No focal deficits. Alert and oriented x3. PSYCH: Normal mood and affect Course Course Emergency Course: Patient is endorsing continued pain after IV fluids, morphine, toradol, dilaudid, will consult hospitalist for admission Consultations Consultation #1: Spoke with hospitalist about patient and workup who accepts admission Date: 05/01/25 Consultation #2: Dr. Vanegas will consult Date: 05/01/25 Vital Signs Vital signs: Vital Signs Temperature 97.6 F 05/01/25 09:57 Pulse Rate 78 05/01/25 09:57 Respiratory Rate 16 05/01/25 09:57 Blood Pressure 145/85 H 05/01/25 09:57 Pulse Oximetry 100 05/01/25 09:57 Temperature 97.6 F 05/01/25 09:57 Pulse Rate 70 05/01/25 16:45 Respiratory Rate 15 05/01/25 16:45 Blood Pressure 133/77 05/01/25 14:31 Pulse Oximetry 100 05/01/25 16:45 Medical Decision Making MDM Narrative Medical decision making narrative: Patient presents to the ER for pain in the low back, lower extremities, bilateral ribs. Reporting history of sickle cell anemia. His vitals are stable. CBC with leukocytosis to 20.1. Patient is afebrile. He does not have any localizing infectious symptoms. Hemoglobin is 12.3. Absolute reticulocyte 0.27,% reticulocyte 5.3. Metabolic panel without concerning findings. UA without evidence of infection. Chest x-ray without acute cardiopulmonary abnormality. 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 Patient is endorsing continued pain after IV fluids, morphine, toradol, dilaudid, hospitalist was consulted for admission. Dr. Vanegas will consult Vital Signs Vital Signs: Vital Signs Temperature 97.6 F 05/01/25 09:57 Pulse Rate 78 05/01/25 09:57 Respiratory Rate 16 05/01/25 09:57 Blood Pressure 145/85 H 05/01/25 09:57 Pulse Oximetry 100 05/01/25 09:57 Temperature 97.6 F 05/01/25 09:57 Pulse Rate 70 05/01/25 16:45 Respiratory Rate 15 05/01/25 16:45 Blood Pressure 133/77 05/01/25 14:31 Pulse Oximetry 100 05/01/25 16:45 Lab Data Lab results reviewed: Yes I reviewed the patient's lab results. 05/01/25 10:05 05/01/25 10:05 Labs: Lab Results 05/01/25 05/01/25 05/01/25 Range/Units 10:05 12:24 16:46 WBC 20.1 H (4.5-10.0) K/mm3 RBC 5.13 (4.6-6.20) M/mm3 Hgb 12.3 L (14.0-18.0) g/dL Hct 35.9 L (42.0-52.0) % MCV 70.0 L (80-100) fl MCH 24.0 L (26-34) pg MCHC 34.3 (32-36) g/dl RDW 21.0 H (11.5-14.5) % Plt Count 284 (150-375) k/mm3 MPV 8.2 (7.4-10.4) fl Immature Gran % (Auto) 1.5 H (0-0.5) % Neut % (Auto) 58.2 (45.5-73.1) % Lymph % (Auto) 32.5 (18.3-44.2) % [place] % (Auto) 7.0 (2.6-8.5) % Eos % (Auto) 0.5 (0-4.4) % Baso % (Auto) 0.3 (0.2-1.2) % Lymph # (Auto) 6.52 H (0.9-3.2) K/mm3 [place] # (Auto) 1.4 H (0.1-0.6) K/mm3 Eos # (Auto) 0.1 (0-0.3) K/mm3 Baso # (Auto) 0.1 (0.0-0.1) K/mm3 Abs Immat Gran (auto) 0.31 H (0.00-0.031) K/mm3 Absolute Neuts (auto) 11.7 H (1.3-6.7) K/mm3 Absolute Nucleated RBC 0.120 H (0.0-0.012) K/mm3 Band Neutrophils % Not Reportable Nucleated RBC % 0.6 H (0.0-0.2) % Platelet Estimate Adequate (Adequate) Polychromasia 1+ Basophilic Stippling 1+ Anisocytosis 1+ Target Cells 2+ Schistocytes None seen Absolute Retic 0.27 H (0.02-0.10) 10^6/uL Percent Retic 5.30 H (0.7-4.3) % Immature Retic Fraction 46.2 H (3.0-15.9) % Retic Hgb Content 28.5 (28.2-36.6) pg Haptoglobin Pending Sodium 138 (137-145) mmol/L Potassium 3.9 (3.4-5.0) mmol/L Chloride 104 (98-107) mmol/L Carbon Dioxide 25 (22-30) mmol/L Anion Gap 9 (4-12) mmol/L BUN 15 (9-20) mg/dL Creatinine 1.05 (0.7-1.3) mg/dL Estim Creat Clear Calc 116 ml/min Estimated GFR > 60 (59 - ) Glucose 93 (65-110) mg/dL Calcium 9.3 (8.4-10.2) mg/dL Total Bilirubin 1.3 (0.2-1.3) mg/dL AST 32 (17-59) U/L ALT 22 (6-50) U/L Alkaline Phosphatase 95 (38-126) U/L Lactate Dehydrogenase 231 (120-246) U/L Total Protein 7.8 (6.3-8.2) g/dL Albumin 4.4 (3.5-5.1) g/dL Urine Color Yellow (Yellow) Urine Appearance Cloudy H (Clear) Urine pH 6.0 (5.0-9.0) Ur Specific [place] 1.013 (1.001-1.035) Urine Protein Negative (Negative) mg/dL Urine Glucose (UA) Negative (Negative) mg/dL Urine Ketones Negative (Negative) mg/dL Ur Blood (Man) Negative (Negative) Urine Nitrate Negative (Negative) Urine Bilirubin Negative (Negative) Urine Urobilinogen 1.0 (<2.0) mg/dL Leukocyte Esterase Rfl Negative (Negative) RODNEY/UL Urine RBC 0-2 (0-2) /hpf Urine WBC 0-5 (0-3) /hpf Ur Squamous Epith Cells None seen (Few) /hpf Urine Bacteria None seen /hpf Urine Casts 0-2 Imaging Data Radiologist's impression: ITS Impressions Chest X-Ray 05/01/25 11:28 IMPRESSION: 1: NO ACUTE CARDIOPULMONARY DISEASE. Pelvis CT 05/01/25 16:35 IMPRESSION: 1. Unchanged small indolent appearing lytic lesion with serpiginous cardiac margins at the base of the left posterior neck spine suggestive of a chronic bone infarct particularly given history of sickle cell disease. No acute osseous abnormality. Critical Care Time Critical Care Time Critical Care Time: No Discharge Plan Discharge Clinical Impression: Sickle cell anemia Qualifiers: Sickle-cell associated disorders: with unspecified crisis Qualified Code(s): D57.00 - Hb-SS disease with crisis, unspecified Patient Disposition: Still a Patient Condition: Stable Patient Language: Kosovan Prescriptions: No Action naproxen [Naprosyn] 500 mg tablet 500 mg PO BID Qty: 20 0RF cyclobenzaprine 10 mg tablet 10 mg PO TID Qty: 30 0RF ibuprofen 800 mg tablet 800 mg PO TID PRN (Reason: pain) 7 Days Qty: 21 0RF acetaminophen 500 mg tablet 1,000 mg PO TID PRN (Reason: shabbir) 7 Days Qty: 42 0RF methocarbamol 750 mg tablet 1,500 mg PO TID Qty: 35 0RF Follow-up/Referrals: Ramiro Chance MD [Primary Care Provider, Family Practice]
[2025-05-01] MEDS: ONDANSETRON INJ 4 MG/2 ML VIAL IV PUSH (11:10)
[2025-05-01] MEDS: SODIUM CHLORIDE 0.9% IV 1,000 ML 999 ML IV CONT ×2 (11:10→14:35)
[2025-05-01] MEDS: MORPHINE SULFATE (*CRX) 4 MG/ML INJ IV PUSH (11:10)
[2025-05-01] MEDS: KETOROLAC 15 MG/ML VIAL (*BKC) IV PUSH (11:11)
[2025-05-01 12:36] LABS: Add Urine Microscopic? YES; Appearance Urine Cloudy (Clear); Glucose Urine UA Negative (Negative); Leukocyte Esterase Ur Negative LEU/UL (Negative); Nitrate Urine Negative (Negative); Non Pathogenic Casts 0-2; Specific Grav Ur 1.013 (1.001-1.035)
[2025-05-01] MEDS: HYDROmorphone HCL INJ (*CRX) 1 MG/ML SYR 0.5 MG IV PUSH (14:35)
--- NOTE | 2025-05-01 17:17 | P.HP_ITS ---
H&P: HPI History of Present Illness Date/Time: 05/01/25 17:17 Chief Complaint: Sickle cell crisis Narrative: 30-year-old male with past medical history of sickle cell anemia, presents the hospital with acute pain. Patient's is eights that he was at the hospital earlier this week for sickle cell crisis and was discharged home on tramadol. He states that the tramadol was unable to control his pain. He complains of low back and hip pain. He denies shortness of breath fever chills. 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 He was trying to do his respiratory exercises at home to prevent it but it did not help. Patient denies nausea or vomiting. Fever chills. Lab work shows leukocytosis at 20.1, hemoglobin of 12.3, platelets of 284, haptoglobin is pending, CMP is within normal limits. UA is negative for infection. Chest x-ray shows no acute cardiopulmonary process. Pelvis CT shows Unchanged small indolent appearing lytic lesion with serpiginous cardiac margins at the base of the left posterior neck spine suggestive of a chronic bone infarct particularly given history of sickle cell disease. Review of Systems Review of Systems: 12 systems were reviewed and are negativ e except for as per HPI. [facility] Past Medical History Medical History (Updated 05/01/25 @ 20:14 by Jacqueline Rush, YARN CONDITIONER) Sickle cell anemia Social History Social History (System 08/13/19 @ 13:57 by Hawa Buchanan) Smoking status: Former smoker Alcohol intake: former Substance use: never Lack of Transportation: YES Lack of Food: Sometimes True Current Housing: I Have Housing Concerned About Future Housing: YES Difficulty Paying Gas/Electric Bills: YES Difficulty Paying for Meds: YES Currently Unemployed: No Education: Associate Degree Difficulty w/ Childcare or Family Care: No Spiritual care concerns: No Meds Home Medications and Allergies Home Medications ?Medication ?Instructions ?Recorded ?Confirmed ?Type acetaminophen 500 mg tablet 1,000 mg (2 x 500 mg) PO T ID PRN 06/07/24 05/01/25 Rx shabbir 7 days #42 tabs ibuprofen 800 mg tablet 800 mg PO TID PRN pain 7 day s #21 06/07/24 05/01/25 Rx tabs Allergies Allergy/AdvReac Type Severity Reaction Status Date / Time shellfish derived Allergy Unknown Verified 05/01/25 09:59 Vital Signs Vital Signs - 24 hr 05/01/25 09:57 05/01/25 09:57 05/01/25 09:58 Temperature 97.6 F Pulse Rate 78 78 83 Respiratory Rate 16 17 14 Blood Pressure 145/85 H 145/85 H Pulse Oximetry 100 99 100 05/01/25 10:00 05/01/25 10:02 05/01/25 10:15 Temperature Pulse Rate 83 74 71 Respiratory Rate 17 16 12 Blood Pressure 117/84 Pulse Oximetry 100 100 99 05/01/25 10:16 05/01/25 10:30 05/01/25 10:31 Temperature Pulse Rate 79 72 72 Respiratory Rate 10 L 14 19 Blood Pressure 115/79 120/81 Pulse Oximetry 100 100 100 05/01/25 10:45 05/01/25 10:47 05/01/25 11:00 Temperature Pulse Rate 84 70 72 Respiratory Rate 19 14 15 Blood Pressure 128/70 Pulse Oximetry 98 100 100 05/01/25 11:01 05/01/25 11:21 05/01/25 11:30 Temperature Pulse Rate 77 71 68 Respiratory Rate 17 20 12 Blood Pressure 132/93 H Pulse Oximetry 100 99 05/01/25 11:45 05/01/25 12:00 05/01/25 12:15 Temperature Pulse Rate 64 66 59 L Respiratory Rate 14 14 12 Blood Pressure Pulse Oximetry 100 99 100 05/01/25 12:25 05/01/25 12:30 05/01/25 12:31 Temperature Pulse Rate 62 65 62 Respiratory Rate 14 14 12 Blood Pressure 128/74 117/70 Pulse Oximetry 05/01/25 12:45 05/01/25 12:46 05/01/25 13:00 Temperature Pulse Rate 64 62 68 Respiratory Rate 12 11 L 12 Blood Pressure 117/77 Pulse Oximetry 05/01/25 13:01 05/01/25 13:15 05/01/25 13:17 Temperature Pulse Rate 72 79 70 Respiratory Rate 12 14 13 Blood Pressure 113/71 115/69 Pulse Oximetry 100 100 05/01/25 13:30 05/01/25 13:31 05/01/25 13:32 Temperature Pulse Rate 68 68 65 Respiratory Rate 19 18 14 Blood Pressure 115/72 Pulse Oximetry 100 100 100 05/01/25 13:45 05/01/25 13:47 05/01/25 14:00 Temperature Pulse Rate 76 85 67 Respiratory Rate 13 18 12 Blood Pressure Pulse Oximetry 99 100 97 05/01/25 14:01 05/01/25 14:15 05/01/25 14:16 Temperature Pulse Rate 86 62 68 Respiratory Rate 12 12 12 Blood Pressure 139/82 134/85 Pulse Oximetry 100 100 100 05/01/25 14:30 05/01/25 14:31 05/01/25 15:34 Temperature Pulse Rate 71 77 78 Respiratory Rate 14 14 23 H Blood Pressure 133/77 Pulse Oximetry 100 100 98 05/01/25 16:07 05/01/25 16:15 05/01/25 16:31 Temperature Pulse Rate 64 78 80 Respiratory Rate 14 16 Blood Pressure Pulse Oximetry 99 99 100 05/01/25 16:45 Temperature Pulse Rate 70 Respiratory Rate 15 Blood Pressure Pulse Oximetry 100 Exam Narrative: General: well appearing, appears stated age. Tearful HEENT: normocephalic, atraumatic. Mucous membranes moist. EOMI, PERRLA, bilateral sclera anicteric, no conjunctival injection. Neck supple without JVD, lymphadenopathy, or bruit. Respiratory: clear to ascultation bilaterally. No rales/rhonic/wheezes. Cardiovascular: Regular rate and rhythm, normal S1-S2 upon ascultation. No murmurs, rubs, or clicks. PMI is nondisplaced, capillary refill less than 3 second. Abdomen: Soft, round, no pulsatile masses, nondistended and nontender. No rebound, no guarding. No CVA tenderness, no hepatosplenomegaly. Bowel sounds present to all four quadrants. No high pitch or tinkling sounds, resonant to percussion. Extremities: No cyanosis, clubbing, or edema present. Pulses are palpable 2/2. Active ROM to all four extremities. Neuro: Alert and orientated x 4. PERRLA. Cranial nerves 2-12 intact without focal deficit. Skin: Warm, dry, and intact, without rash, erythema, or lesion. Psych: pleasant, cooperative, normal speech, normal affect, no hallucinations, no dysarthia H&P: Results Labs Labs: Short CBC 05/01/25 Range/Units 10:05 WBC 20.1 H (4.5-10.0) K/mm3 Hgb 12.3 L (14.0-18.0) g/dL Hct 35.9 L (42.0-52.0) % Plt Count 284 (150-375) k/mm3 BMP 05/01/25 10:05 Sodium 138 Potassium 3.9 Chloride 104 Carbon Dioxide 25 BUN 15 Creatinine 1.05 Glucose 93 Calcium 9.3 Liver Function 05/01/25 Range/Units 10:05 Total Bilirubin 1.3 (0.2-1.3) mg/dL AST 32 (17-59) U/L ALT 22 (6-50) U/L Alkaline Phosphatase 95 (38-126) U/L Albumin 4.4 (3.5-5.1) g/dL Urine 05/01/25 Range/Units 12:24 Urine Color Yellow (Yellow) Urine Appearance Cloudy H (Clear) Urine pH 6.0 (5.0-9.0) Ur Specific [place] 1.013 (1.001-1.035) Urine Protein Negative (Negative) mg/dL Urine Glucose (UA) Negative (Negative) mg/dL Assessment and Plan Assessment and plan (1) Sickle cell crisis: Code(s): D57.00 - Hb-SS disease with crisis, unspecified Status: Acute Assessment and Plan: Hematology consulted HONING MACHINE TRY OUT SETTER for pain management Scheduled Toradol Incentive spirometer Telemetry with capnography Haptoglobin pending (2) Sickle cell anemia: Qualifiers: Sickle-cell associated disorders: with unspecified crisis Qualified Code(s): D57.00 - Hb-SS disease with crisis, unspecified Code(s): D57.1 - Sickle-cell disease without crisis Status: Acute Assessment and Plan: No need for blood transfusion at this time BMP in the morning (3) Leukocytosis: Code(s): D72.829 - Elevated white blood cell count, unspecified Status: Acute Assessment and Plan: Chest x-ray shows no acute signs of infection UA negative for infection No soft tissue infection No antibiotics indicated at this time Quality VTE Prophylaxis VTE prophylaxis: mechanical ordered Hospitalist MIPS Advance Care Plan I have confirmed that the patient's Advanced Care Plan is present, code status is documented, or surrogate decision maker is listed in patient medical record.: Yes Medication Reconciliation I have utilized all available resources to obtain, update and review the patients current medications (includes all prescriptions, OTC, herbals, cannabis, and nutritional supplements).: Yes
--- NOTE | 2025-05-01 20:22 | ADMGEN ---
This patient, Scott Bowden Jr., was admitted to Medical Room 342-01. Patient/family oriented to hospital policies and general routines including ID bracelet, bed and alarms, visiting hours, pain management, procedures, bathroom and other care routines, personal items, smoking policy, room service/diet, and visiting hours. Information on how to activate the Rapid Response Team has been discussed. Patient/Family are encouraged to report perceived risks to care and to ask questions if they do not understand what they are told or what they should do.
[2025-05-01] MEDS: HYDROmorphon 0.2MG/ML PCA(*CRX 6 MG/30 ML PCA.VIAL IV CONT (21:35)
[2025-05-01] MEDS: SODIUM CHLORIDE 0.9% IV 1,000 ML 125 ML IV CONT (21:35)
[2025-05-02] VITALS (18 sets, daily range): BP systolic 122–126; BP diastolic 67–73; PULSE 63–94; RESP 12–20; TEMP 36.2–37.2; O2SAT 94–99
[2025-05-02] MEDS: SODIUM CHLORIDE 0.9% IV 1,000 ML 125 ML IV CONT ×3 (05:36→20:22)
[2025-05-02 05:56] LABS: Hematocrit 34.9 % (42.0-52.0); Hemoglobin 11.9 g/dL (14.0-18.0); Immature Granulocyte Percent A 0.8 % (0-0.5); Lymphocytes Absolute Auto 4.79 K/mm3 (0.9-3.2); Mean Corpuscular HGB Conc 34.1 g/dl (32-36); Mean Corpuscular Hemoglobin 24.1 pg (26-34); Mean Corpuscular Volume 70.6 fl (80-100); Nucleated Red Blood Cells Absolute Auto 0.110 K/mm3 (0.0-0.012); Nucleated Red Blood Cells Perc 0.8 % (0.0-0.2); Platelet Count Result 266 k/mm3 (150-375); Red Blood Count 4.94 M/mm3 (4.6-6.20); White Blood Count 13.5 K/mm3 (4.5-10.0)
[2025-05-02 06:18] LABS: Anion Gap 4 mmol/L (4-12); Blood Urea Nitrogen 15 mg/dL (9-20); Calcium 8.7 mg/dL (8.4-10.2); Carbon Dioxide 30 mmol/L (22-30); Chloride 104 mmol/L (98-107); Estimated CRCL calculation 107 ml/min; Estimated Glomerular Filt Rate > 60; Glucose 90 mg/dL (65-110); Potassium 4.1 mmol/L (3.4-5.0); Sodium 138 mmol/L (137-145)
[2025-05-02 06:21] LABS: Anisocytosis 1+; Hypochromasia 2+; Polychromasia 1+; Target Cells 2+
[2025-05-02 06:22] LABS: Schistocytes None Seen
[2025-05-02] MEDS: KETOROLAC 15 MG/ML VIAL (*BKC) IV PUSH ×3 (06:27→17:15)
--- NOTE | 2025-05-02 10:26 | P.PNIM_ITS ---
Progress Note: A&P Assessment and Plan (1) Sickle cell crisis: Code(s): D57.00 - Hb-SS disease with crisis, unspecified Status: Acute Assessment and Plan: Hematology consulted [address] STENOGRAPHER for pain management Scheduled Toradol Incentive spirometer Telemetry with capnography Haptoglobin pending (2) Sickle cell anemia: Qualifiers: Sickle-cell associated disorders: with unspecified crisis Qualified Code(s): D57.00 - Hb-SS disease with crisis, unspecified Code(s): D57.1 - Sickle-cell disease without crisis Status: Acute Assessment and Plan: No need for blood transfusion at this time BMP in the morning trend labs has onc/hem he is following up if needed but PCP managing it - no crisis for about 5 years- so well controlled (3) Leukocytosis: Code(s): D72.829 - Elevated white blood cell count, unspecified Status: Acute Assessment and Plan: Chest x-ray shows no acute signs of infection UA negative for infection No soft tissue infection No antibiotics indicated at this time trend daily labs Time Spent With Patient Time with patient: 25 - 35 minutes Subjective Date/time seen: 05/02/25 10:26 Interval history: 30-year-old male with past medical history of sickle cell anemia, presents the hospital with acute pain. Patient's is eights that he was at the hospital earlier this week for sickle cell crisis and was discharged home on tramadol. He states that the tramadol was unable to control his pain. He complains of low back and hip pain. He denies shortness of breath fever chills. 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 He was trying to do his respiratory exercises at home to prevent it but it did not help. Patient denies nausea or vomiting. Fever chills. Lab work shows leukocytosis at 20.1, hemoglobin of 12.3, platelets of 284, haptoglobin is pending, CMP is within normal limits. UA is negative for infection. Chest x-ray shows no acute cardiopulmonary process. Pelvis CT shows Unchanged small indolent appearing lytic lesion with serpiginous cardiac margins at the base of the left posterior neck spine suggestive of a chronic bone infarct particularly given history of sickle cell disease. Pt is seen and examined. He is resting in bed, reports pain is controlled with FREEL[facility] STENOGRAPHER. Review of Systems Review of Systems: 12 systems were reviewed and are negativ e except for as per HPI. Exam Narrative: General: well appearing, appears stated age. calm HEENT: normocephalic, atraumatic. Mucous membranes moist. EOMI, PERRLA, bilateral sclera anicteric, no conjunctival injection. Neck supple without JVD, lymphadenopathy, or bruit. Respiratory: clear to ascultation bilaterally. No rales/rhonic/wheezes. Cardiovascular: Regular rate and rhythm, normal S1-S2 upon ascultation. No murmurs, rubs, or clicks. PMI is nondisplaced, capillary refill less than 3 second. Abdomen: Soft, round, no pulsatile masses, nondistended and nontender. No rebound, no guarding. No CVA tenderness, no hepatosplenomegaly. Bowel sounds present to all four quadrants. No high pitch or tinkling sounds, resonant to percussion. Extremities: No cyanosis, clubbing, or edema present. Pulses are palpable 2/2. Active ROM to all four extremities. Neuro: Alert and orientated x 4. PERRLA. Cranial nerves 2-12 intact without focal deficit. Skin: Warm, dry, and intact, without rash, erythema, or lesion. Psych: pleasant, cooperative, normal speech, normal affect, no hallucinations, no dysarthria. Const: General: comfortable Resp: Effort & Inspection: normal respiratory effort Objective Data Vital Signs Vital Signs: Vital Signs - 24 hr 05/01/25 10:30 05/01/25 10:31 05/01/25 10:45 Temperature Pulse Rate 72 72 84 Respiratory Rate 14 19 19 Blood Pressure 120/81 Pulse Oximetry 100 100 98 Oxygen Delivery 05/01/25 10:47 05/01/25 11:00 05/01/25 11:01 Temperature Pulse Rate 70 72 77 Respiratory Rate 14 15 17 Blood Pressure 128/70 132/93 H Pulse Oximetry 100 100 100 Oxygen Delivery 05/01/25 11:21 05/01/25 11:30 05/01/25 11:45 Temperature Pulse Rate 71 68 64 Respiratory Rate 20 12 14 Blood Pressure Pulse Oximetry 99 100 Oxygen Delivery 05/01/25 12:00 05/01/25 12:15 05/01/25 12:25 Temperature Pulse Rate 66 59 L 62 Respiratory Rate 14 12 14 Blood Pressure 128/74 Pulse Oximetry 99 100 Oxygen Delivery 05/01/25 12:30 05/01/25 12:31 05/01/25 12:45 Temperature Pulse Rate 65 62 64 Respiratory Rate 14 12 12 Blood Pressure 117/70 Pulse Oximetry Oxygen Delivery 05/01/25 12:46 05/01/25 13:00 05/01/25 13:01 Temperature Pulse Rate 62 68 72 Respiratory Rate 11 L 12 12 Blood Pressure 117/77 113/71 Pulse Oximetry Oxygen Delivery 05/01/25 13:15 05/01/25 13:17 05/01/25 13:30 Temperature Pulse Rate 79 70 68 Respiratory Rate 14 13 19 Blood Pressure 115/69 Pulse Oximetry 100 100 100 Oxygen Delivery 05/01/25 13:31 05/01/25 13:32 05/01/25 13:45 Temperature Pulse Rate 68 65 76 Respiratory Rate 18 14 13 Blood Pressure 115/72 Pulse Oximetry 100 100 99 Oxygen Delivery 05/01/25 13:47 05/01/25 14:00 05/01/25 14:01 Temperature Pulse Rate 85 67 86 Respiratory Rate 18 12 12 Blood Pressure 139/82 Pulse Oximetry 100 97 100 Oxygen Delivery 05/01/25 14:15 05/01/25 14:16 05/01/25 14:30 Temperature Pulse Rate 62 68 71 Respiratory Rate 12 12 14 Blood Pressure 134/85 Pulse Oximetry 100 100 100 Oxygen Delivery 05/01/25 14:31 05/01/25 15:34 05/01/25 16:07 Temperature Pulse Rate 77 78 64 Respiratory Rate 14 23 H 14 Blood Pressure 133/77 Pulse Oximetry 100 98 99 Oxygen Delivery 05/01/25 16:15 05/01/25 16:31 05/01/25 16:45 Temperature Pulse Rate 78 80 70 Respiratory Rate 16 15 Blood Pressure Pulse Oximetry 99 100 100 Oxygen Delivery 05/01/25 18:17 05/01/25 19:48 05/01/25 20:15 Temperature Pulse Rate 71 72 72 Respiratory Rate 14 14 14 Blood Pressure 134/97 H 122/74 122/74 Pulse Oximetry 100 98 98 Oxygen Delivery 05/01/25 20:28 05/01/25 21:35 05/01/25 22:00 Temperature 97.6 F Pulse Rate 79 Respiratory Rate 16 16 Blood Pressure 129/85 Pulse Oximetry 100 98 Oxygen Delivery Room Air 05/02/25 00:00 05/02/25 04:00 05/02/25 05:30 Temperature 98.9 F Pulse Rate 74 82 74 Respiratory Rate 18 Blood Pressure 123/73 Pulse Oximetry 99 Oxygen Delivery 05/02/25 08:00 Temperature Pulse Rate Respiratory Rate Blood Pressure Pulse Oximetry Oxygen Delivery Room Air Intake/Output Intake/Output: Intake & Output 04/29/25 04/30/25 05/01/25 05/02/25 23:59 23:59 23:59 23:59 Intake Total 1999 2109 Output Total 1899 Balance 1999 210 Meds/Results Medications: Active Medications Generic Name Dose Route Start Last Admin Trade Name Freq PRN Reason Stop Dose Admin Acetaminophen 650 mg 05/01/25 20:15 Acetaminophen 325 Mg Tablet PO Q4H PRN Mild Pain (1-3) or Fever Docusate Sodium 100 mg 05/02/25 09:00 05/02/25 08:55 Docusate Sodium 100 Mg Capsule PO Not Given BID SERGIO Hydromorphone HCl 0.5 mg 05/01/25 22:12 Hydromorphone Hcl Inj (*Crx) 1 Mg/Ml Syr IV PUSH Q4HR PRN Breakthrough Pain Sodium Chloride 1,000 mls @ 125 mls/hr 05/01/25 17:15 05/02/25 05:36 Normal Saline Iv IV CONT 125 mls/hr .Q8H SERGIO Administration Hydromorphone HCl 6 mg in 30 mls @ 0 mls/hr 05/01/25 17:17 05/01/25 21:35 Dilaudid 0.2 Mg/Ml Recruitment Director IV CONT 0 mg/hr PRN PRN 0 mls/hr [facility] STENOGRAPHER Management Administration Protocol 0 MG/HR Ketorolac Tromethamine 15 mg 05/01/25 22:15 05/02/25 06:28 Ketorolac 15 Mg/Ml Vial (*Bkc) IV PUSH Not Given Q6HR [facility] Radiology Results: ITS Impressions Chest X-Ray 05/01/25 11:28 IMPRESSION: 1: NO ACUTE CARDIOPULMONARY DISEASE. Pelvis CT 05/01/25 16:35 IMPRESSION: 1. Unchanged small indolent appearing lytic lesion with serpiginous cardiac margins at the base of the left posterior neck spine suggestive of a chronic bone infarct particularly given history of sickle cell disease. No acute osseous abnormality. Labs Labs: Laboratory Results - last 24 hr 05/01/25 05/01/25 05/02/25 10:05 12:24 05:24 WBC 20.1 H 13.5 H RBC 5.13 4.94 Hgb 12.3 L 11.9 L Hct 35.9 L 34.9 L MCV 70.0 L 70.6 L MCH 24.0 L 24.1 L MCHC 34.3 34.1 RDW 21.0 H 20.7 H Plt Count 284 266 MPV 8.2 8.0 Immature Gran % (Auto) 1.5 H 0.8 H Neut % (Auto) 58.2 53.1 Lymph % (Auto) 32.5 35.6 [place] % (Auto) 7.0 8.6 H Eos % (Auto) 0.5 1.5 Baso % (Auto) 0.3 0.4 Lymph # (Auto) 6.52 H 4.79 H [place] # (Auto) 1.4 H 1.2 H Eos # (Auto) 0.1 0.2 Baso # (Auto) 0.1 0.1 Abs Immat Gran (auto) 0.31 H 0.11 H Absolute Neuts (auto) 11.7 H 7.2 H Absolute Nucleated RBC 0.120 H 0.110 H Band Neutrophils % Not Reportable Not Reportable Nucleated RBC % 0.6 H 0.8 H Platelet Estimate Adequate Adequate Polychromasia 1+ 1+ Hypochromasia 2+ Basophilic Stippling 1+ Anisocytosis 1+ 1+ Target Cells 2+ 2+ Schistocytes None seen None seen Absolute Retic 0.27 H Percent Retic 5.30 H Immature Retic Fraction 46.2 H Retic Hgb Content 28.5 Sodium 138 138 Potassium 3.9 4.1 Chloride 104 104 Carbon Dioxide 25 30 Anion Gap 9 4 BUN 15 15 Creatinine 1.05 1.15 Estim Creat Clear Calc 116 107 Estimated GFR > 60 > 60 Glucose 93 90 Calcium 9.3 8.7 Total Bilirubin 1.3 AST 32 ALT 22 Alkaline Phosphatase 95 Lactate Dehydrogenase 231 Total Protein 7.8 Albumin 4.4 Urine Color Yellow Urine Appearance Cloudy H Urine pH 6.0 Ur Specific [place] 1.013 Urine Protein Negative Urine Glucose (UA) Negative Urine Ketones Negative Ur Blood (Man) Negative Urine Nitrate Negative Urine Bilirubin Negative Urine Urobilinogen 1.0 Leukocyte Esterase Rfl Negative Urine RBC 0-2 Urine WBC 0-5 Ur Squamous Epith Cells None seen Urine Bacteria None seen Urine Casts 0-2 Quality VTE Prophylaxis VTE prophylaxis: mechanical ordered
--- NOTE | 2025-05-02 11:04 | P.PNIM_ITS ---
Progress Note: A&P Assessment and Plan (1) Sickle cell crisis: Code(s): D57.00 - Hb-SS disease with crisis, unspecified Status: Acute Assessment and Plan: Hematology consulted Continue MANAGER ART for pain management Continue scheduled Toradol Incentive spirometer encouraged Telemetry with capnography Haptoglobin pending Hgb 11.0 - No need for transfusion at this time Continue IV fluids CBC in the morning (2) Sickle cell anemia: Qualifiers: Sickle-cell associated disorders: with unspecified crisis Qualified Code(s): D57.00 - Hb-SS disease with crisis, unspecified Code(s): D57.1 - Sickle-cell disease without crisis Status: Acute Assessment and Plan: No need for blood transfusion at this time CBC in the morning (3) Leukocytosis: Code(s): D72.829 - Elevated white blood cell count, unspecified Status: Acute Assessment and Plan: WBC 20.1 on admission, now 13.5 Chest x-ray shows no acute signs of infection UA negative for infection No soft tissue infection No antibiotics indicated at this time CBC in the morning Subjective Date/time seen: 05/02/25 11:04 Interval history: 30-year-old male with past medical history of sickle cell anemia, presents the hospital with acute pain. Lab work shows leukocytosis at 20.1, hemoglobin of 12.3, platelets of 284, haptoglobin is pending, CMP is within normal limits. UA is negative for infection. Chest x-ray shows no acute cardiopulmonary process. Pelvis CT shows Unchanged small indolent appearing lytic lesion with serpiginous cardiac margins at the base of the left posterior neck spine suggestive of a chronic bone infarct particularly given history of sickle cell disease. Patient was admitted for sickle cell crisis. Patient seen and examined at bedside. Patient showing no signs of distress. Patient reports his pain is 6/10 which is an acceptable level for him. Patient reports the hydromorphone MANAGER ART and scheduled Toradol are controlling his pain. Patient reports one episode of diarrhea overnight. Hematology consult pending. Continue IV hydration, pain control and repeat labs in the morning. Review of Systems Review of Systems: 12 systems were reviewed and are negativ e except for as per HPI. Exam Narrative: General: well appearing, appears stated age. HEENT: normocephalic, atraumatic. Mucous membranes moist. EOMI, PERRLA, bilateral sclera anicteric, no conjunctival injection. Neck supple without JVD, lymphadenopathy, or bruit. Respiratory: clear to ascultation bilaterally. No rales/rhonic/wheezes. Cardiovascular: Regular rate and rhythm, normal S1-S2 upon ascultation. No murmurs, rubs, or clicks. PMI is nondisplaced, capillary refill less than 3 second. Abdomen: Soft, round, no pulsatile masses, nondistended and nontender. No rebound, no guarding. No CVA tenderness, no hepatosplenomegaly. Bowel sounds present to all four quadrants. No high pitch or tinkling sounds, resonant to percussion. Extremities: No cyanosis, clubbing, or edema present. Pulses are palpable 2/2. Active ROM to all four extremities. Neuro: Alert and orientated x 4. PERRLA. Cranial nerves 2-12 intact without focal deficit. Skin: Warm, dry, and intact, without rash, erythema, or lesion. Psych: pleasant, cooperative, normal speech, normal affect, no hallucinations, no dysarthia Objective Data Vital Signs Vital Signs: Vital Signs - 24 hr 05/01/25 11:21 05/01/25 11:30 05/01/25 11:45 Temperature Pulse Rate 71 68 64 Respiratory Rate 20 12 14 Blood Pressure Pulse Oximetry 99 100 Oxygen Delivery 05/01/25 12:00 05/01/25 12:15 05/01/25 12:25 Temperature Pulse Rate 66 59 L 62 Respiratory Rate 14 12 14 Blood Pressure 128/74 Pulse Oximetry 99 100 Oxygen Delivery 05/01/25 12:30 05/01/25 12:31 05/01/25 12:45 Temperature Pulse Rate 65 62 64 Respiratory Rate 14 12 12 Blood Pressure 117/70 Pulse Oximetry Oxygen Delivery 05/01/25 12:46 05/01/25 13:00 05/01/25 13:01 Temperature Pulse Rate 62 68 72 Respiratory Rate 11 L 12 12 Blood Pressure 117/77 113/71 Pulse Oximetry Oxygen Delivery 05/01/25 13:15 05/01/25 13:17 05/01/25 13:30 Temperature Pulse Rate 79 70 68 Respiratory Rate 14 13 19 Blood Pressure 115/69 Pulse Oximetry 100 100 100 Oxygen Delivery 05/01/25 13:31 05/01/25 13:32 05/01/25 13:45 Temperature Pulse Rate 68 65 76 Respiratory Rate 18 14 13 Blood Pressure 115/72 Pulse Oximetry 100 100 99 Oxygen Delivery 05/01/25 13:47 05/01/25 14:00 05/01/25 14:01 Temperature Pulse Rate 85 67 86 Respiratory Rate 18 12 12 Blood Pressure 139/82 Pulse Oximetry 100 97 100 Oxygen Delivery 05/01/25 14:15 05/01/25 14:16 05/01/25 14:30 Temperature Pulse Rate 62 68 71 Respiratory Rate 12 12 14 Blood Pressure 134/85 Pulse Oximetry 100 100 100 Oxygen Delivery 05/01/25 14:31 05/01/25 15:34 05/01/25 16:07 Temperature Pulse Rate 77 78 64 Respiratory Rate 14 23 H 14 Blood Pressure 133/77 Pulse Oximetry 100 98 99 Oxygen Delivery 05/01/25 16:15 05/01/25 16:31 05/01/25 16:45 Temperature Pulse Rate 78 80 70 Respiratory Rate 16 15 Blood Pressure Pulse Oximetry 99 100 100 Oxygen Delivery 05/01/25 18:17 05/01/25 19:48 05/01/25 20:15 Temperature Pulse Rate 71 72 72 Respiratory Rate 14 14 14 Blood Pressure 134/97 H 122/74 122/74 Pulse Oximetry 100 98 98 Oxygen Delivery 05/01/25 20:28 05/01/25 21:35 05/01/25 22:00 Temperature 97.6 F Pulse Rate 79 Respiratory Rate 16 16 Blood Pressure 129/85 Pulse Oximetry 100 98 Oxygen Delivery Room Air 05/02/25 00:00 05/02/25 04:00 05/02/25 05:30 Temperature 98.9 F Pulse Rate 74 82 74 Respiratory Rate 18 Blood Pressure 123/73 Pulse Oximetry 99 Oxygen Delivery 05/02/25 08:00 05/02/25 09:00 05/02/25 11:00 Temperature Pulse Rate Respiratory Rate 15 12 Blood Pressure Pulse Oximetry 97 98 Oxygen Delivery Room Air Intake/Output Intake/Output: Intake & Output 04/29/25 04/30/25 05/01/25 05/02/25 23:59 23:59 23:59 23:59 Intake Total 1999 2109 Output Total 1899 Balance 1999 210 Meds/Results Medications: Active Medications Generic Name Dose Route Start Last Admin Trade Name Freq PRN Reason Stop Dose Admin Acetaminophen 650 mg 05/01/25 20:15 Acetaminophen 325 Mg Tablet PO Q4H PRN Mild Pain (1-3) or Fever Docusate Sodium 100 mg 05/02/25 09:00 05/02/25 08:55 Docusate Sodium 100 Mg Capsule PO Not Given BID SERGIO Hydromorphone HCl 0.5 mg 05/01/25 22:12 Hydromorphone Hcl Inj (*Crx) 1 Mg/Ml Syr IV PUSH Q4HR PRN Breakthrough Pain Sodium Chloride 1,000 mls @ 125 mls/hr 05/01/25 17:15 05/02/25 05:36 Normal Saline Iv IV CONT 125 mls/hr .Q8H SERGIO Administration Hydromorphone HCl 6 mg in 30 mls @ 0 mls/hr 05/01/25 17:17 05/02/25 11:00 Dilaudid 0.2 Mg/Ml Form Building Supervisor IV CONT 0.2 mg/hr PRN PRN 1 mls/hr MANAGER ART Management Titration Protocol 0 MG/HR Ketorolac Tromethamine 15 mg 05/01/25 22:15 05/02/25 06:28 Ketorolac 15 Mg/Ml Vial (*Bkc) IV PUSH Not Given Q6HR [facility] Radiology Results: ITS Impressions Chest X-Ray 05/01/25 11:28 IMPRESSION: 1: NO ACUTE CARDIOPULMONARY DISEASE. Pelvis CT 05/01/25 16:35 IMPRESSION: 1. Unchanged small indolent appearing lytic lesion with serpiginous cardiac margins at the base of the left posterior neck spine suggestive of a chronic bone infarct particularly given history of sickle cell disease. No acute osseous abnormality. Labs Labs: Laboratory Results - last 24 hr 05/01/25 05/01/25 05/02/25 10:05 12:24 05:24 WBC 13.5 H RBC 4.94 Hgb 11.9 L Hct 34.9 L MCV 70.6 L MCH 24.1 L MCHC 34.1 RDW 20.7 H Plt Count 266 MPV 8.0 Immature Gran % (Auto) 0.8 H Neut % (Auto) 53.1 Lymph % (Auto) 35.6 [place] % (Auto) 8.6 H Eos % (Auto) 1.5 Baso % (Auto) 0.4 Lymph # (Auto) 4.79 H [place] # (Auto) 1.2 H Eos # (Auto) 0.2 Baso # (Auto) 0.1 Abs Immat Gran (auto) 0.11 H Absolute Neuts (auto) 7.2 H Absolute Nucleated RBC 0.110 H Band Neutrophils % Not Reportable Nucleated RBC % 0.8 H Platelet Estimate Adequate Polychromasia 1+ Hypochromasia 2+ Anisocytosis 1+ Target Cells 2+ Schistocytes None seen Sodium 138 Potassium 4.1 Chloride 104 Carbon Dioxide 30 Anion Gap 4 BUN 15 Creatinine 1.15 Estim Creat Clear Calc 107 Estimated GFR > 60 Glucose 90 Calcium 8.7 Lactate Dehydrogenase 231 Urine Color Yellow Urine Appearance Cloudy H Urine pH 6.0 Ur Specific [place] 1.013 Urine Protein Negative Urine Glucose (UA) Negative Urine Ketones Negative Ur Blood (Man) Negative Urine Nitrate Negative Urine Bilirubin Negative Urine Urobilinogen 1.0 Leukocyte Esterase Rfl Negative Urine RBC 0-2 Urine WBC 0-5 Ur Squamous Epith Cells None seen Urine Bacteria None seen Urine Casts 0-2 Quality VTE Prophylaxis VTE prophylaxis: mechanical ordered
--- NOTE | 2025-05-02 12:45 | PC.NURSE ---
Pt keeps taking off capnography equipment. Education provided.
--- NOTE | 2025-05-02 19:17 | WPDONCCN ---
Assessment and Plan Assessment and plan (1) Sickle cell crisis: Code(s): D57.00 - Hb-SS disease with crisis, unspecified Status: Acute Assessment and Plan: Patient admitted for sickle cell crisis likely instigated from his preceding upper respiratory illness. 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 He is not on any hydroxyurea at this time and reports that the crisis are only once a year. At this time we do not see any evidence of infection and I agree with hospitalist team for IV hydration and pain management with Dilaudid drip. No additional testing or intervention needed. I highly recommended patient has established care in a sickle cell multidisciplinary Clinic as outpatient for long-term management of his disease. HPI Data of Consult Date/Time: 05/02/25 19:17 Requesting Physician: Donovan Batista MD Primary Care Provider: Ramiro Chance MD Consult Narrative Reason for consult: Sickle Cell Crisis Narrative: Scott Bowden Jr. is a 30 year old male admitted through ER on 05/01/25 for sickle cell crisis. Patient presented to the emergency department for sickle cell crisis. Reported that he has been having pain ongoing over the last week. Has been evaluated for this at another hospital as well. Reported hip pain, low back pain, lower extremity pain, rib pain. He tried taking his home tramadol with little relief. Denies fever, cough, abdominal pain, vomiting, diarrhea, dysuria. Patient reports that he used to see a grades 1 through 5 teacher when he was child but has no follow up currently. States that he is getting crisis once a year. At admission a CT scan of pelvis on 05/01/25 was done which showed a chronic lytic lesion with serpiginous sclerotic margins at the base of the left posterior iliac spine consistent with a chronic bone infarct. CXR was done and showed no acute cardiopulmonary disease. WBC at admission was 20.1 and urine shows no bacteria or increase in WBC. 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 Patient states that he feels much better than the time of admission. Review of Systems Review of Systems: Patient reports that he has been having sickle cell crisis once a year. He is not on any hydroxyurea. Patient does not have any established grades 1 through 5 teacher. Since the start of hydration and Dilaudid drip he feels better. At this time he denies any nausea vomiting. He does still have pain 4/10 in bilateral hips radiating to legs bilaterally. He also complains of knee pain bilaterally. No hematochezia or melena. He has mild shortness of breath. No cough but reports that he has upper respiratory infection few weeks back. No hematochezia or melena. [facility] Past Medical History Medical History (Updated 05/01/25 @ 20:14 by Jacqueline Rush APRN) Sickle cell anemia Family History Family History (Updated 05/02/25 @ 06:16 by Maria M Jackson RN) Other Unknown family medical history Social History Social History (System 08/13/19 @ 13:57 by Hawa Buchanan) Smoking status: Former smoker Alcohol intake: former Substance use: never Lack of Transportation: YES Lack of Food: Sometimes True Current Housing: I Have Housing Concerned About Future Housing: YES Difficulty Paying Gas/Electric Bills: YES Difficulty Paying for Meds: YES Currently Unemployed: No Education: Associate Degree Difficulty w/ Childcare or Family Care: No Spiritual care concerns: No Meds Home Medications and Allergies Home Medications ?Medication ?Instructions ?Recorded ?Confirmed ?Type acetaminophen 500 mg tablet 1,000 mg (2 x 500 mg) PO TID PRN 06/07/24 05/01/25 Rx shabbir 7 days #42 tabs ibuprofen 800 mg tablet 800 mg PO TID PRN pain 7 days #21 06/07/24 05/01/25 Rx tabs Allergies Allergy/AdvReac Type Severity Reaction Status Date / Time shellfish derived Allergy Unknown Verified 05/01/25 09:59 Vital Signs Vital Signs - 24 hr 05/01/25 19:48 05/01/25 20:15 05/01/25 20:28 Temperature 36.4 C Pulse Rate 72 72 79 Respiratory Rate 14 14 16 Blood Pressure 122/74 122/74 129/85 Pulse Oximetry 98 98 100 Oxygen Delivery 05/01/25 21:35 05/01/25 22:00 05/02/25 00:00 Temperature Pulse Rate 74 Respiratory Rate 16 Blood Pressure Pulse Oximetry 98 Oxygen Delivery Room Air 05/02/25 04:00 05/02/25 05:30 05/02/25 08:00 Temperature 37.2 C Pulse Rate 82 74 Respiratory Rate 18 Blood Pressure 123/73 Pulse Oximetry 99 Oxygen Delivery Room Air 05/02/25 08:00 05/02/25 09:00 05/02/25 11:00 Temperature Pulse Rate 63 Respiratory Rate 15 12 Blood Pressure Pulse Oximetry 97 98 Oxygen Delivery 05/02/25 12:00 05/02/25 13:00 05/02/25 13:24 Temperature Pulse Rate 73 73 Respiratory Rate 12 Blood Pressure Pulse Oximetry 97 97 Oxygen Delivery Room Air 05/02/25 15:00 05/02/25 16:00 05/02/25 16:14 Temperature 36.2 C L Pulse Rate 73 69 Respiratory Rate 13 18 Blood Pressure 122/67 Pulse Oximetry 97 95 Oxygen Delivery 05/02/25 17:00 05/02/25 19:04 Temperature Pulse Rate Respiratory Rate 13 16 Blood Pressure Pulse Oximetry 96 94 Oxygen Delivery Exam Narrative: General: Alert and oriented resting well no acute distress. HEENT: YOGI, EOMI, no scleral icterus CV: Regular rate and rhythm no murmurs gallops or rubs. RESP: Lungs clear to auscultation bilaterally ABD: Soft nontender nondistended bowel sounds present EXT: No edema or cyanosis. Results Labs 05/02/25 05:24 05/02/25 05:24 Labs: Short CBC 05/02/25 Range/Units 05:24 WBC 13.5 H (4.5-10.0) K/mm3 Hgb 11.9 L (14.0-18.0) g/dL Hct 34.9 L (42.0-52.0) % Plt Count 266 (150-375) k/mm3 BMP 05/02/25 05:24 Sodium 138 Potassium 4.1 Chloride 104 Carbon Dioxide 30 BUN 15 Creatinine 1.15 Glucose 90 Calcium 8.7
[2025-05-03] VITALS: PULSE 81
[2025-05-03] MEDS: KETOROLAC 15 MG/ML VIAL (*BKC) IV PUSH ×3 (00:33→12:17)
[2025-05-03 00:59] VITALS: RESP 12; O2SAT 97
[2025-05-03] MEDS: HYDROmorphon 0.2MG/ML PCA(*CRX 6 MG/30 ML PCA.VIAL 1 MG IV CONT (00:59)
[2025-05-03 05:00] VITALS: BP 128/73; PULSE 77; RESP 13; RESP 20; TEMP 36.4; O2SAT 100; O2SAT 98
[2025-05-03] MEDS: SODIUM CHLORIDE 0.9% IV 1,000 ML 125 ML IV CONT ×2 (05:06→12:19)
[2025-05-03 05:49] LABS: Hematocrit 34.2 % (42.0-52.0); Hemoglobin 11.8 g/dL (14.0-18.0); Immature Granulocyte Percent A 0.6 % (0-0.5); Lymphocytes Absolute Auto 3.65 K/mm3 (0.9-3.2); Mean Corpuscular HGB Conc 34.5 g/dl (32-36); Mean Corpuscular Hemoglobin 24.0 pg (26-34); Mean Corpuscular Volume 69.7 fl (80-100); Nucleated Red Blood Cells Absolute Auto 0.060 K/mm3 (0.0-0.012); Nucleated Red Blood Cells Perc 0.5 % (0.0-0.2); Platelet Count Result 272 k/mm3 (150-375); Red Blood Count 4.91 M/mm3 (4.6-6.20); White Blood Count 12.7 K/mm3 (4.5-10.0)
[2025-05-03 06:10] LABS: Anion Gap 4 mmol/L (4-12); Blood Urea Nitrogen 14 mg/dL (9-20); Calcium 8.9 mg/dL (8.4-10.2); Carbon Dioxide 27 mmol/L (22-30); Chloride 104 mmol/L (98-107); Estimated CRCL calculation 118 ml/min; Estimated Glomerular Filt Rate > 60; Glucose 97 mg/dL (65-110); Potassium 4.3 mmol/L (3.4-5.0); Sodium 135 mmol/L (137-145)
[2025-05-03 07:04] LABS: Anisocytosis 1+; Basophilic Stippling Occasional; Hypochromasia 2+; Microcytosis 2+ (NORMAL); Poikilocytosis 1+; Polychromasia 1+; Schistocytes 1+; Target Cells 2+
[2025-05-03 07:32] VITALS: PULSE 73; RESP 11; O2SAT 98
[2025-05-03 08:00] VITALS: PULSE 73
[2025-05-03] MEDS: traMADol HCL (*CRX) 50 MG TABLET PO ×2 (10:51→13:33)
[2025-05-03 14:00] VITALS: BP 126/74; PULSE 68; RESP 18; TEMP 36.8; O2SAT 99
--- NOTE | 2025-05-03 15:06 | P.DS_ITS ---
DS: Admitting Diagnosis Discharge Date 05/03/2025 Admitting Diagnosis Sickle Cell Crisis DS: Discharge Diagnosis Discharge Diagnosis (1) Sickle cell crisis: Code(s): D57.00 - Hb-SS disease with crisis, unspecified Status: Acute Assessment and Plan: Hematology consulted, recommended for patient to establish outpatient follow up care s/p CRAPS DEALER for pain management s/p IV Toradol, discharge with 2 days PO Toradol Incentive spirometer encouraged Haptoglobin pending No need for transfusion at this time s/p IV fluids patient weaned from Dilaudid CRAPS DEALER to PO Tramadol. Patient reported 50 mg dose ineffective, increased to 100 mg and will discharge home with script for Tramadol 100 mg PO Q 6 hours PRN (2) Sickle cell anemia: Qualifiers: Sickle-cell associated disorders: with unspecified crisis Qualified Code(s): D57.00 - Hb-SS disease with crisis, unspecified Code(s): D57.1 - Sickle-cell disease without crisis Status: Acute Assessment and Plan: No need for blood transfusion at this time (3) Leukocytosis: Code(s): D72.829 - Elevated white blood cell count, unspecified Status: Acute Assessment and Plan: WBC 20.1 on admission, now 13.5 Chest x-ray shows no acute signs of infection UA negative for infection No soft tissue infection No antibiotics indicated at this time DS: Summary Hospital Course Reason for hospitalization: Sickle Cell Crisis Hospital Course: Patient was admitted for an acute sickle cell crisis. Patient reported pain that was not controlled with PO Tramadol at home. Patient was treated with IV fluids, Dilaudid CRAPS DEALER and scheduled IV Toradol. Patient was seen by Hematology and was recommended to establish an outpatient television newscast director to follow up with. Patient was transitioned to oral pain medication prior to discharge. Patient was discharged with Tramadol 100 mg PO Q 6 hrs PRN. Patient requested Tramadol vs Hydrocodone as he feels the hydrocodone makes him too sleepy. Patient will be discharged home and will follow up with his PCP within 1 week of discharge and hematology within 2 weeks of discharge. Time Spent with Patient Time attestation: Total time spent providing and/or coordinating discharge services: < 30 minutes Exam Narrative: General: well appearing, appears stated age. calm HEENT: normocephalic, atraumatic. Mucous membranes moist. EOMI, PERRLA, bilateral sclera anicteric, no conjunctival injection. Neck supple without JVD, lymphadenopathy, or bruit. Respiratory: clear to ascultation bilaterally. No rales/rhonic/wheezes. Cardiovascular: Regular rate and rhythm, normal S1-S2 upon ascultation. No murmurs, rubs, or clicks. PMI is nondisplaced, capillary refill less than 3 second. Abdomen: Soft, round, no pulsatile masses, nondistended and nontender. No rebound, no guarding. No CVA tenderness, no hepatosplenomegaly. Bowel sounds present to all four quadrants. No high pitch or tinkling sounds, resonant to percussion. Extremities: No cyanosis, clubbing, or edema present. Pulses are palpable 2/2. Active ROM to all four extremities. Neuro: Alert and orientated x 4. PERRLA. Cranial nerves 2-12 intact without focal deficit. Skin: Warm, dry, and intact, without rash, erythema, or lesion. Psych: pleasant, cooperative, normal speech, normal affect, no hallucinations, no dysarthria. Const: General: comfortable Resp: Effort & Inspection: normal respiratory effort DS: Data Data Completed and Pending Labs on day of discharge: Labs from last 24 hours 05/03/25 05:27 WBC 12.7 H RBC 4.91 Hgb 11.8 L Hct 34.2 L MCV 69.7 L MCH 24.0 L MCHC 34.5 RDW 20.7 H Plt Count 272 MPV 8.4 Immature Gran % (Auto) 0.6 H Neut % (Auto) 58.5 Lymph % (Auto) 28.8 [place] % (Auto) 6.3 Eos % (Auto) 5.3 H Baso % (Auto) 0.5 Lymph # (Auto) 3.65 H [place] # (Auto) 0.8 H Eos # (Auto) 0.7 H Baso # (Auto) 0.1 Abs Immat Gran (auto) 0.07 H Absolute Neuts (auto) 7.4 H Absolute Nucleated RBC 0.060 H Band Neutrophils % Not Reportable Nucleated RBC % 0.5 H Platelet Estimate Adequate Polychromasia 1+ Hypochromasia 2+ Poikilocytosis 1+ Basophilic Stippling Occasional Anisocytosis 1+ Microcytosis 2+ Target Cells 2+ Schistocytes 1+ Sodium 135 L Potassium 4.3 Chloride 104 Carbon Dioxide 27 Anion Gap 4 BUN 14 Creatinine 1.04 Estim Creat Clear Calc 118 Estimated GFR > 60 Glucose 97 Calcium 8.9 Discharge Plan Discharge Attending physician on discharge: Donovan Batista Consulting providers: Zohaib Vanegas Discharging Clinician: Portia Calderon Anticipated Discharge Date/Time: 05/03/25 14:56 Patient Disposition: Home Activity: as tolerated Diet: as tolerated Discharge Instructions: Do not drive while taking Narcotic pain medications. Patient Instructions: Antibiotic Form Patient Language: Scottish Stand Alone Forms: General Discharge Information, Work/School Release IP Follow-up/Referrals: Zohaib Vanegas MD [Physician, Hematology] Problems: Sickle cell anemia Discharge Medications: New docusate sodium 100 mg Capsule 100 mg PO BID Qty: 60 0RF tramadol 100 mg tablet 100 mg PO Q6H PRN (Reason: pain) Qty: 20 0RF ketorolac 10 mg tablet 10 mg PO Q8H Qty: 6 0RF Rx Instructions: maximum total duration of 5 days from all oral, intranasal, or parenteral formulations Continued acetaminophen 500 mg tablet 1,000 mg PO TID PRN (Reason: shbabir) 7 Days Qty: 42 0RF Discontinued ibuprofen 800 mg tablet 800 mg PO TID PRN (Reason: pain) 7 Days Qty: 21 0RF Date of admission: 05/03/25 10:00 Primary Care Provider: Ramiro Chance Admitting Provider: Donovan Batista Attending physician on admission: Donovan Batista Condition: Stable Quality VTE Prophylaxis VTE prophylaxis: mechanical ordered
--- NOTE | 2025-05-03 15:40 | P.PNONC_ITS ---
Progress Note: A&P Assessment and Plan (1) Sickle cell crisis: Code(s): D57.00 - Hb-SS disease with crisis, unspecified Status: Acute Assessment and Plan: Patient admitted for sickle cell crisis likely instigated from his preceding upper respiratory illness. 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 He is not on any hydroxyurea at this time and reports that the crisis are only once a year. Patient managed by hospitalist team with IV hydration and pain management with Dilaudid drip. He is feeling much better now and dilaudid drip is weaned off. He is back on Tramadol now. Patient to be discharged today. I highly recommended patient has established care in a [facility] as outpatient for long-term management of his disease. Subjective Date/time seen: 05/03/25 15:40 Interval history: No overnight events. Feeling better and weaned off the dilaudid and back to tramadol. Sitting up on sofa all dressed to be discharged. Review of Systems Review of Systems Feels much better today. Pain is well controlled. No dyspnea. Lower extremity and bilateral hip pain has resolved. No hematochezia or melena. He has mild shortness of breath. No cough but reports that he has upper respiratory infection few weeks back. No hematochezia or melena.REst of 12 point ROS is negative. Exam Narrative: General: Alert and oriented resting well no acute distress. HEENT: YOGI, EOMI, no scleral icterus CV: Regular rate and rhythm no murmurs gallops or rubs. RESP: Lungs clear to auscultation bilaterally ABD: Soft nontender nondistended bowel sounds present EXT: No edema or cyanosis. Objective Data Vital Signs Vital Signs: Vital Signs - 24 hr 05/02/25 16:00 05/02/25 16:14 05/02/25 17:00 Temperature 36.2 C L Pulse Rate 73 69 Respiratory Rate 18 13 Blood Pressure 122/67 Pulse Oximetry 95 96 Oxygen Delivery Fraction of Inspired Oxygen 05/02/25 19:04 05/02/25 20:00 05/02/25 20:00 Temperature Pulse Rate 94 Respiratory Rate 16 Blood Pressure Pulse Oximetry 94 Oxygen Delivery Room Air Fraction of Inspired Oxygen 05/02/25 20:05 05/02/25 20:57 05/02/25 22:00 Temperature 36.4 C L Pulse Rate 63 69 Respiratory Rate 20 17 12 Blood Pressure 126/70 Pulse Oximetry 98 99 97 Oxygen Delivery Room Air Fraction of Inspired Oxygen 21 05/03/25 00:00 05/03/25 00:59 05/03/25 05:00 Temperature 36.4 C L Pulse Rate 81 77 Respiratory Rate 12 20 Blood Pressure 128/73 Pulse Oximetry 97 100 Oxygen Delivery Fraction of Inspired Oxygen 05/03/25 05:00 05/03/25 07:32 05/03/25 08:00 Temperature Pulse Rate 73 Respiratory Rate 13 11 L Blood Pressure Pulse Oximetry 98 98 Oxygen Delivery Room Air Room Air Fraction of Inspired Oxygen 21 Intake/Output Intake/Output: Intake & Output 04/30/25 05/01/25 05/02/25 05/03/25 23:59 23:59 23:59 23:59 Intake Total 1999 5135.9 2412.1 Output Total 3200 2200 Balance 1999 1935.9 212.1 Meds/Results Medications: Active Medications Generic Name Dose Route Start Last Admin Trade Name Freq PRN Reason Stop Dose Admin Acetaminophen 650 mg 05/01/25 20:15 Acetaminophen 325 Mg Tablet PO Q4H PRN Mild Pain (1-3) or Fever Docusate Sodium 100 mg 05/02/25 09:00 05/03/25 09:40 Docusate Sodium 100 Mg Capsule PO Not Given BID SERGIO Hydromorphone HCl 0.5 mg 05/01/25 22:12 Hydromorphone Hcl Inj (*Crx) 1 Mg/Ml Syr IV PUSH Q4HR PRN Breakthrough Pain Sodium Chloride 1,000 mls @ 125 mls/hr 05/01/25 17:15 05/03/25 12:19 Normal Saline Iv IV CONT 125 mls/hr .Q8H SERGIO Administration Ketorolac Tromethamine 15 mg 05/01/25 22:15 05/03/25 12:17 Ketorolac 15 Mg/Ml Vial (*Bkc) IV PUSH 15 mg Q6HR SERGIO Administration Radiology Results: ITS Impressions Chest X-Ray 05/01/25 11:28 IMPRESSION: 1: NO ACUTE CARDIOPULMONARY DISEASE. Pelvis CT 05/01/25 16:35 IMPRESSION: 1. Unchanged small indolent appearing lytic lesion with serpiginous cardiac margins at the base of the left posterior neck spine suggestive of a chronic bone infarct particularly given history of sickle cell disease. No acute osseous abnormality. Labs Labs: Laboratory Results - last 24 hr 05/03/25 05:27 WBC 12.7 H RBC 4.91 Hgb 11.8 L Hct 34.2 L MCV 69.7 L MCH 24.0 L MCHC 34.5 RDW 20.7 H Plt Count 272 MPV 8.4 Immature Gran % (Auto) 0.6 H Neut % (Auto) 58.5 Lymph % (Auto) 28.8 [place] % (Auto) 6.3 Eos % (Auto) 5.3 H Baso % (Auto) 0.5 Lymph # (Auto) 3.65 H [place] # (Auto) 0.8 H Eos # (Auto) 0.7 H Baso # (Auto) 0.1 Abs Immat Gran (auto) 0.07 H Absolute Neuts (auto) 7.4 H Absolute Nucleated RBC 0.060 H Band Neutrophils % Not Reportable Nucleated RBC % 0.5 H Platelet Estimate Adequate Polychromasia 1+ Hypochromasia 2+ Poikilocytosis 1+ Basophilic Stippling Occasional Anisocytosis 1+ Microcytosis 2+ Target Cells 2+ Schistocytes 1+ Sodium 135 L Potassium 4.3 Chloride 104 Carbon Dioxide 27 Anion Gap 4 BUN 14 Creatinine 1.04 Estim Creat Clear Calc 118 Estimated GFR > 60 Glucose 97 Calcium 8.9
== END 2025-05-03 17:45 | disposition home or self-care (01) | DRG 662 ==
LOC: ANHED 17:57 → ANHIMU 18:24 → ANH3MED 19:51
PROVIDERS: Nurse Practitioner Adult Health; Nurse Practitioner Gerontology; Physician Assistant; Student in an Organized Health Care Education/Training Program; Admitting Provider General Practice; Emergency Provider Physician Assistant; PCP Emergency Medicine; Visit Provider General Practice
DX: D57.00 Hb-SS disease with crisis, unspecified (principal); D72.829 Elevated white blood cell count, unspecified; M89.9 Disorder of bone, unspecified
CPT/HCPCS: 36415; 71046; 72192; 80048; 80053; 81001; 83010; 83615; 85025; 85046; 96361; 96365; 96366; 96374; 96375; 96376; 99285; A9270; G0378; G0379; J1171; J1885; J2270; J2405; J7030